=== PATIENT | male | born 1945 | race African-American/Black ===

== ENCOUNTER → 2017-04-24 | Outpatient (CLI) | payer MEDICAID, MEDICARE, OTHER ==
--- NOTE | 2017-04-24 12:49 | RADIOLOGY REPORT (SQ) ---
EXAM DESCRIPTION: U/S RETROPERITON (RENAL/AORTA) COMPLETED DATE/TIME: 04/24/2017 12:03 pm REASON FOR STUDY: CKD III (N18.3) N18.3 CHRONIC KIDNEY DISEASE, STAGE 3 (MODERATE) COMPARISON: None. TECHNIQUE: Dynamic and static grayscale images acquired of the kidneys and bladder and recorded on P ACS. Additional selected color Doppler and spectral images recorded. LIMITATIONS: None. FINDINGS: RIGHT KIDNEY: Normal size, 10.8 cm. Normal echogenicity. No solid or suspicious masses. S everal cysts are present. The largest measured 20 mm. No hydronephrosis. No calcifications. LEFT KIDNEY: Normal size, 10.1 cm. Kidney was not able to be well seen. BLADDER: Bladder was morphologically normal. Bilateral ureteral jets were seen. OTHER FINDINGS: The prostate gland was prominent measuring 4.8 x 4 x 5.2 cm. IMPRESSION: There are several right renal cysts. The right kidney is otherwise normal. The left ki dney is normal in size but was not well seen. The prostate gland is prominent. TECHNICAL DOCUMENTATION: JOB ID: [id number]- All Rights Reserved
== END ==
LOC: RAD 11:04
PROVIDERS: ATTEND Internal Medicine Geriatric Medicine
DX: N18.3 Chronic kidney disease, stage 3 (moderate) (principal)
CPT/HCPCS: 76770

== ENCOUNTER → 2017-04-24 | Outpatient (CLI) | payer MEDICARE ==
[2017-04-24 10:29] LABS: URINE PROTEIN 13.3 mg/dL (<12)
[2017-04-24 10:47] LABS: CREATININE 1.43 mg/dL (0.52-1.25)
== END ==
LOC: OD 08:55
PROVIDERS: ATTEND Internal Medicine Geriatric Medicine
DX: N18.3 Chronic kidney disease, stage 3 (moderate) (principal)
CPT/HCPCS: 82575; 84156

== ENCOUNTER 2018-09-15 17:16 | Outpatient (CLI) | payer MEDICARE ==
[~2018-09-15 17:16] MED LIST: ACETAMINOPHEN 325 MG TABLET PO PRN; DIPHENHYDRAMINE HCL 25 MG CAPSULE PO PRN; FUROSEMIDE INJ/PF 20 MG/2 ML SDV IV PRN
[2018-09-15] MEDS ORDERED: NORMAL SALINE 1000 ML 1,000 ML IV PRN (18:00)
[2018-09-15 19:02] LABS: ABSOLUTE LYMPHOCYTES (AUTO) 0.9 10^3/uL (0.5-4.7); ABSOLUTE MONOCYTES (AUTO) 0.6 10^3/uL (0.1-1.4); ABSOLUTE NEUT (AUTO) 1.9 10^3/uL (1.7-8.2); BASOPHILS % (AUTO) 0.5 % (0-2); EOSINOPHILS % (AUTO) 0.2 % (0-6); HEMATOCRIT 20.6 % (37.9-51.0); LYMPHOCYTES % (AUTO) 26.5 % (13-45); MEAN CORPUSCULAR HEMOGLOBIN 23.8 pg (27.0-33.4); MEAN CORPUSCULAR VOLUME 79 fl (80-97); MONOCYTES % (AUTO) 17.5 % (3-13); PLATELET COUNT 218 10^3/uL (150-450); RED CELL DISTRIBUTION WIDTH 24.3 % (11.5-14.0); SEGMENTED NEUTROPHILS % (AUTO) 55.3 % (42-78); TOTAL CELLS COUNTED % (AUTO) 100 %; WHITE BLOOD COUNT 3.4 10^3/uL (4.0-10.5)
[2018-09-15 19:08] LABS: HEMOGLOBIN 6.2 g/dL (13.5-17.0)
[2018-09-15 19:24] LABS: ANISOCYTOSIS 3+; HYPOCHROMASIA SLIGHT; PLATELET COMMENT ADEQUATE; POIKILOCYTOSIS 1+; TOXIC GRANULATION SLIGHT
[2018-09-15] MEDS ORDERED: SACUBITRIL/VALSARTAN 24 MG/26 MG TABLET PO ONE (22:45)
[2018-09-15] MEDS ORDERED: CARVEDILOL 12.5 MG TABLET PO ONE (23:00)
[2018-09-16] MEDS ORDERED: FUROSEMIDE INJ/PF 20 MG/2 ML SDV IV PRN (05:00)
[2018-09-16 06:40] LABS: HEMATOCRIT 26.2 % (37.9-51.0); HEMOGLOBIN 8.2 g/dL (13.5-17.0); MEAN CORPUSCULAR HEMOGLOBIN 24.9 pg (27.0-33.4); MEAN CORPUSCULAR HGB CONC 31.2 g/dL (32.0-36.0); MEAN CORPUSCULAR VOLUME 80 fl (80-97); PLATELET COUNT 210 10^3/uL (150-450); RED BLOOD COUNT 3.28 10^6/uL (4.35-5.55); RED CELL DISTRIBUTION WIDTH 21.9 % (11.5-14.0); WHITE BLOOD COUNT 3.4 10^3/uL (4.0-10.5)
[2018-09-16] MEDS ORDERED: CARVEDILOL 12.5 MG TABLET PO SCH ×2 (10:00→22:00)
[2018-09-16] MEDS ORDERED: SACUBITRIL/VALSARTAN 24 MG/26 MG TABLET PO SCH (10:00)
[2018-09-16] MEDS ORDERED: IPRATROPIUM/ALBUTEROL 0.5-2.5 MG/3 ML AMPUL NEB PRN (10:23)
[2018-09-16] MEDS ORDERED: ALBUTEROL SULFATE HFA (90 MCG/PUFF) 200 PUFF/8.5 GM MDI IH PRN (10:30)
[2018-09-16] MEDS ORDERED: ACETAMINOPHEN 325 MG TABLET PO PRN (10:30)
[2018-09-16] MEDS ORDERED: DEXTROSE 40% GEL 15 GM TUBE X 2 PO PRN (11:00)
[2018-09-16] MEDS ORDERED: DEXTROSE 50%-WATER SYRINGE 12.5 GM/25 ML DOSE IV PRN (11:00)
[2018-09-16] MEDS ORDERED: GLUCAGON,HUMAN RECOMB 1 MG INJ IM PRN (11:00)
[2018-09-16] MEDS ORDERED: DEXTROSE 50%-WATER SYRINGE 25 GM/50 ML DOSE IV PRN (11:00)
[2018-09-16] MEDS ORDERED: INSULIN REG, HUMAN 100 UNIT/ML 3 ML VIAL (PYX) SUBCUT SCH (11:00)
[2018-09-16] MEDS ORDERED: DEXTROSE 40% GEL 15 GM TUBE PO PRN (11:00)
[2018-09-16] MEDS ORDERED: FLUTICASONE/VILANTEROL 200-25 MCG/DOSE IH SCH (11:30)
[2018-09-16] MEDS ORDERED: ASCORBIC ACID 500 MG TABLET PO SCH (11:30)
[2018-09-16] MEDS ORDERED: POLYETHYLENE GLYCOL 3350 POWDER 17 GM/1 PACKET PO SCH (11:30)
[2018-09-16] MEDS ORDERED: PANTOPRAZOLE SODIUM 20 MG TABLET.DR PO SCH (11:30)
[2018-09-16] MEDS ORDERED: ASPIRIN 81 MG TABLET, ENT COATED PO SCH (11:30)
[2018-09-16] MEDS ORDERED: FERROUS SULFATE 325 MG TABLET PO SCH (11:30)
[2018-09-16] MEDS ORDERED: MULTIVITAMIN TABLET PO SCH (11:30)
[2018-09-16] MEDS ORDERED: FUROSEMIDE 40 MG TABLET PO SCH (11:30)
[2018-09-16] MEDS ORDERED: RANOLAZINE 500 MG TAB.SR.12H PO SCH (11:30)
[2018-09-16] MEDS ORDERED: CARVEDILOL 12.5 MG TABLET PO ONE (12:00)
[2018-09-16] MEDS ORDERED: [UNRECOGNIZED DRUG - OTHER] PO SCH (14:00)
[2018-09-16 17:00] VITALS: BP 164/68
[2018-09-16] MEDS ORDERED: (PENDING PHARMACY ID) (Azelastine Hcl [Azelastine Hcl] 2 SPRAY) NS SCH (18:00)
[2018-09-16 18:15] LABS: ABSOLUTE LYMPHOCYTES (AUTO) 1.1 10^3/uL (0.5-4.7); ABSOLUTE MONOCYTES (AUTO) 0.7 10^3/uL (0.1-1.4); ABSOLUTE NEUT (AUTO) 2.5 10^3/uL (1.7-8.2); BASOPHILS % (AUTO) 0.5 % (0-2); EOSINOPHILS % (AUTO) 0.5 % (0-6); HEMATOCRIT 33.2 % (37.9-51.0); MEAN CORPUSCULAR HEMOGLOBIN 25.8 pg (27.0-33.4); MEAN CORPUSCULAR HGB CONC 31.4 g/dL (32.0-36.0); MEAN CORPUSCULAR VOLUME 82 fl (80-97); MONOCYTES % (AUTO) 15.5 % (3-13); PLATELET COUNT 221 10^3/uL (150-450); RED BLOOD COUNT 4.03 10^6/uL (4.35-5.55); RED CELL DISTRIBUTION WIDTH 20.1 % (11.5-14.0); SEGMENTED NEUTROPHILS % (AUTO) 58.5 % (42-78); TOTAL CELLS COUNTED % (AUTO) 100 %; WHITE BLOOD COUNT 4.2 10^3/uL (4.0-10.5)
[2018-09-16 18:16] LABS: HEMOGLOBIN 10.4 g/dL (13.5-17.0)
[2018-09-16 18:27] LABS: ANISOCYTOSIS 2+; PLATELET COMMENT ADEQUATE
[2018-09-16 18:38] LABS: OVALOCYTES 1+; PLATELET LARGE PRESENT; POIKILOCYTOSIS 1+; POLYCHROMASIA SLIGHT; TEAR DROP CELLS SLIGHT
[2018-09-16] MEDS ORDERED: (PENDING PHARMACY ID) (Fluticasone/Salmeterol 1 PUFF) IH SCH (22:00)
[2018-09-16] MEDS ORDERED: ATORVASTATIN CALCIUM 80 MG TABLET PO SCH (22:00)
[2018-09-16] MEDS ORDERED: GABAPENTIN 100 MG CAPSULE PO SCH (22:00)
[2018-09-17] MEDS ORDERED: (PENDING PHARMACY ID) (Mirabegron [Myrbetriq] 25 MG) PO SCH (10:00)
[2018-09-17] MEDS ORDERED: (PENDING PHARMACY ID) (Rosuvastatin Calcium [Crestor] 40 MG) PO SCH (10:00)
[2018-09-17] MEDS ORDERED: (PENDING PHARMACY ID) (Multivit-Min/Fa/Lycopen/Lutein [Centrum Silver Men Tablet] 1 EACH) PO SCH (10:00)
[2018-09-17] MEDS ORDERED: TAMSULOSIN HCL 0.4 MG CAP.SR.24H PO SCH (11:30)
== END 2018-09-16 19:15 | disposition home or self-care (01) ==
LOC: II 17:16 → 2N 17:33 → II 09-16 19:15
PROVIDERS: ATTEND Internal Medicine Geriatric Medicine
PROC: 30233N1 Transfusion of Nonautologous Red Blood Cells into Peripheral Vein, Percutaneous Approach (ICD-10-PCS; principal; 2018-09-15)
PROC: 30233N1 Transfusion of Nonautologous Red Blood Cells into Peripheral Vein, Percutaneous Approach (ICD-10-PCS; 2018-09-16)
PROC: 3E033GC Introduction of Other Therapeutic Substance into Peripheral Vein, Percutaneous Approach (ICD-10-PCS; 2018-09-16)
DX: D62 Acute posthemorrhagic anemia (principal); I12.9 Hypertensive chronic kidney disease with stage 1 through stage 4 chronic kidney disease, or unspecified chronic kidney disease; E11.22 Type 2 diabetes mellitus with diabetic chronic kidney disease; N18.3 Chronic kidney disease, stage 3 (moderate); Z79.899 Other long term (current) drug therapy; Z79.4 Long term (current) use of insulin
CPT/HCPCS: 86900; 86901; 36415; 36430; 86850; 82962; 85025; 85027; 80053; 86920; 96374; P9016; A9270 ×9; J3490 ×5; J1940; 96375; J1815

== ENCOUNTER 2018-12-18 11:39 | Emergency (ER) | payer MEDICARE ==
[2018-12-18] MEDS ORDERED: FUROSEMIDE INJ/PF 40 MG/4 ML SDV IV ONE (12:42)
[2018-12-18 13:19] LABS: ABSOLUTE LYMPHOCYTES (AUTO) 0.7 10^3/uL (0.5-4.7); ABSOLUTE MONOCYTES (AUTO) 0.3 10^3/uL (0.1-1.4); ABSOLUTE NEUT (AUTO) 1.7 10^3/uL (1.7-8.2); BASOPHILS % (AUTO) 0.7 % (0-2); EOSINOPHILS % (AUTO) 1.5 % (0-6); HEMATOCRIT 30.2 % (37.9-51.0); HEMOGLOBIN 8.9 g/dL (13.5-17.0); LYMPHOCYTES % (AUTO) 25.3 % (13-45); MEAN CORPUSCULAR HEMOGLOBIN 24.6 pg (27.0-33.4); MEAN CORPUSCULAR HGB CONC 29.6 g/dL (32.0-36.0); MEAN CORPUSCULAR VOLUME 83 fl (80-97); MONOCYTES % (AUTO) 10.6 % (3-13); PLATELET COUNT 125 10^3/uL (150-450); RED BLOOD COUNT 3.63 10^6/uL (4.35-5.55); RED CELL DISTRIBUTION WIDTH 22.1 % (11.5-14.0); SEGMENTED NEUTROPHILS % (AUTO) 61.9 % (42-78); TOTAL CELLS COUNTED % (AUTO) 100 %; WHITE BLOOD COUNT 2.7 10^3/uL (4.0-10.5)
[2018-12-18 13:25] LABS: APPEARANCE,URINE CLEAR; BILIRUBIN,URINE NEGATIVE (NEGATIVE); COLOR,URINE STRAW; GLUCOSE, URINE NEGATIVE (NEGATIVE); KETONES,URINE NEGATIVE (NEGATIVE); LEUKOCYTE ESTERASE,URINE NEGATIVE (NEGATIVE); NITRITE,URINE NEGATIVE (NEGATIVE); PROTEIN,URINE NEGATIVE (NEGATIVE); URINE SPECIFIC GRAVITY 1.006; UROBILINOGEN,URINE NEGATIVE mg/dL (<2.0)
[2018-12-18 13:35] LABS: ALANINE AMINOTRANSFERASE 26 U/L (21-72); ALBUMIN 3.6 g/dL (3.5-5.0); ALKALINE PHOSPHATASE 98 U/L (38-126); ANION GAP 8 (5-19); ASPARTATE AMINO TRANSFERASE 32 U/L (17-59); BILIRUBIN,DIRECT 0.4 mg/dL (0.0-0.4); BILIRUBIN,TOTAL 1.1 mg/dL (0.2-1.3); BLOOD UREA NITROGEN 22 mg/dL (7-20); CALCIUM 9.5 mg/dL (8.4-10.2); CARBON DIOXIDE 29 mmol/L (22-30); CHLORIDE 106 mmol/L (98-107); GLUCOSE 124 mg/dL (75-110); SODIUM 142.5 mmol/L (137-145); TOTAL PROTEIN 6.6 g/dL (6.3-8.2)
[2018-12-18 13:49] LABS: POTASSIUM 4.7 mmol/L (3.6-5.0)
[2018-12-18 15:51] VITALS: BP 151/71
--- NOTE | 2018-12-18 19:13 | ER Document Report ---
Entered by RIOS LYNNE SCRIBE 12/18/18 [id number] Acting as scribe for:TENA CHO DO ED GI/ - General Stated Complaint: URINARY PROBLEM Time Seen by Provider: 12/18/18 12:12 Primary Care Provider: LOUIS JEFFERS MD [Primary Care Provider] - Follow up as needed Mode of Arrival: Ambulatory Information source: Patient Notes: 73-year-old male who presents to the emergency department today with complaints of an inability to void. Patient states he has been having increasing difficulty with urination over the last 3 days and was able to only minimally get a small amount of urine out today but "it was a long process". According to telephonic case manager at bedside she noticed some hematuria today as well. Patient mentions that his "legs are tight". Patient denies any dysuria, shortness of breath, or fevers. TRAVEL OUTSIDE OF THE [place] IN LAST 30 DAYS: No - Related Data Allergies/Adverse Reactions: No Known Allergies Allergy (Verified 09/29/18 13:32) Past Medical History - General Information source: Patient, [facility] Records - Social History Smoking Status: Current Some Day Smoker Cigarette use (# per day): Yes Chew tobacco use (# tins/day): No Frequency of alcohol use: None Drug Abuse: None Lives with: Family Family History: Reviewed & Not Pertinent - Past Medical History Cardiac Medical History: Reports: Hx Congestive Heart Failure, Hx Coronary Artery Disease, Hx Heart Attack, Hx Hypercholesterolemia, Hx Hypertension Pulmonary Medical History: Reports: Hx COPD Endocrine Medical History: Reports: Hx Diabetes Mellitus Type 2 Renal/ Medical History: Reports: Hx Benign Prostatic Hyperplasia Psychiatric Medical History: Reports: Hx Depression Past Surgical History: Reports: Hx Cardiac Catheterization, Hx Cardiac Surgery - Immunizations Hx Pneumococcal Vaccination: 04/10/18 Review of Systems - Review of Systems Constitutional: No symptoms reported EENT: No symptoms reported Cardiovascular: No symptoms reported Respiratory: No symptoms reported Gastrointestinal: No symptoms reported Genitourinary: See HPI, Pain, Retention Male Genitourinary: No symptoms reported Musculoskeletal: See HPI, Leg swelling Skin: No symptoms reported Hematologic/Lymphatic: No symptoms reported Neurological/Psychological: No symptoms reported -: Yes All other systems reviewed and negative Physical Exam - Vital signs Vitals: Temp Pulse Resp BP Pulse Ox 97.5 F 79 16 153/64 H 89 L 12/18/18 11:45 12/18/18 11:45 12/18/18 11:45 12/18/18 11:45 12/18/18 11:45 - Notes Notes: PHYSICAL EXAM GENERAL: Alert, interacts well. Appears uncomfortable. HEAD: Normocephalic, atraumatic. EYES: Pupils equal, round, and reactive to light. Extraocular movements intact. ENT: Oral mucosa moist, tongue midline. NECK: Full range of motion. Supple. Trachea midline. LUNGS: Clear to auscultation bilaterally, no wheezes, rales, or rhonchi. No respiratory distress. HEART: Regular rate and rhythm. No murmurs, gallops, or rubs. ABDOMEN: Soft, non-tender. Non-distended. Bowel sounds present in all 4 quadrants. No guarding, rigidity, or rebound. MALE GENITOURINARY: Grossly edematous scrotum and penis, difficulty finding urethra consistent with congestive heart failure related swelling. EXTREMITIES: Moves all 4 extremities spontaneously. 2-3+ pitting edema that trails off at about the level of the scrotum. NEUROLOGICAL: Alert and oriented x3. Normal speech. PSYCH: Normal affect, normal mood. SKIN: Warm and dry. Course - Re-evaluation Re-evalutation: 12/18/18 15:05 CBC shows pancytopenia with a white blood cell count 2.7, anemia with hemoglobin 8.9, platelets low at 125, small amount acute on chronic renal failure with BUN of 22 and creatinine 1.48, this may be due to urinary retention, none of these numbers are usually significantly changed from prior with the exception of the creatinine which is normally normal and today it is 1.48, urinalysis unremarkable, so no signs of dehydration, no casts. There was a great deal of difficulty placing the Diaz catheter, nursing enlisted my assistance in placing the Diaz catheter. Using a pediatric speculum and firm constant pressure I was personally able to eventually visualize the urethra despite large amount of scrotal and penile swelling related to peripheral edema and pass a Diaz catheter. A large amount of urine was obtained, it was clear with no signs of infection and no blood. Diaz catheter will be left in place, leg bag has been placed, patient instructed on use, patient has known prostatic hypertrophy, encouraged to follow-up with primary care physician within the next week for further advice on when to remove the catheter and follow-up with the urologist. Patient is agreeable to this plan. Patient does have increasing peripheral edema however no increasing shortness of breath and no hypoxia when on his basal rate of oxygen. Patient was given an additional dose of Lasix here and encouraged to follow-up as an outpatient with his primary care physician and weigh himself every day. - Vital Signs Vital signs: Temp Pulse Resp BP Pulse Ox 97.5 F 79 15 151/71 H 92 12/18/18 11:45 12/18/18 11:45 12/18/18 15:25 12/18/18 15:25 12/18/18 15:25 - Laboratory Result Diagrams: 12/18/18 13:00 12/18/18 13:00 Laboratory results interpreted by me: 12/18/18 12/18/18 13:00 13:00 WBC 2.7 L RBC 3.63 L Hgb 8.9 L Hct 30.2 L MCH 24.6 L MCHC 29.6 L RDW 22.1 H Plt Count 125 L BUN 22 H Creatinine 1.48 H Est GFR ( Amer) 56 L Est GFR (Non-Af Amer) 47 L Glucose 124 H Discharge - Discharge Clinical Impression: Acute urinary retention Chronic congestive heart failure Qualifiers: Heart failure type: diastolic Qualified Code(s): I50.32 - Chronic diastolic (congestive) heart failure Acute renal failure Qualifiers: Acute renal failure type: unspecified Qualified Code(s): N17.9 - Acute kidney failure, unspecified Condition: Stable Disposition: HOME, SELF-CARE Additional Instructions: Today we had to place a Diaz catheter so that you are able to urinate. Please leave this in place until you have followed up with urology or Dr. Jeffers. Do not remove the catheter on your own. It likely should stay in for at least a week while you continue to take your Flomax. You do have some signs that you are retaining an increasing amount of fluid. We gave you an additional dose of Lasix here. Please keep taking your Lasix/furosemide as directed. Do not skip any doses. Weigh yourself every morning at the same time and if you gain more than 2 pounds overnight please to call Dr. Jeffers for further guidance. If you develop chest pain or shortness of breath or increasing swelling please return to the emergency department. You do have a small amount of damage to your kidneys today, your creatinine is 1.48. This is only slightly higher than usual however it would be a good idea for Dr. Jeffers to recheck this within the next month. Referrals: LOUIS JEFFERS MD [Primary Care Provider] - Follow up as needed I personally performed the services described in the documentation, reviewed and edited the documentation which was dictated to the scribe in my presence, and it accurately records my words and actions.
== END 2018-12-18 15:51 | disposition home or self-care (01) ==
LOC: ER 11:39
DX: R33.9 Retention of urine, unspecified (principal); I11.0 Hypertensive heart disease with heart failure; I50.32 Chronic diastolic (congestive) heart failure; N17.9 Acute kidney failure, unspecified; R39.198 Other difficulties with micturition; R31.9 Hematuria, unspecified; F17.210 Nicotine dependence, cigarettes, uncomplicated; I25.10 Atherosclerotic heart disease of native coronary artery without angina pectoris; I25.2 Old myocardial infarction; J44.9 Chronic obstructive pulmonary disease, unspecified; E11.9 Type 2 diabetes mellitus without complications
CPT/HCPCS: 99283; 51702; 96374; 36415; 85025; 80053; 81001; C1758; J1940

== ENCOUNTER 2018-12-20 09:43 | Inpatient (IN) | payer MEDICARE ==
--- NOTE | 2018-12-20 10:15 | ER Document Report ---
ED General - General Chief Complaint: Edema Stated Complaint: ENLARGED TESTICLES Time Seen by Provider: 12/20/18 10:13 Notes: Patient is a 73-year-old male with CHF, CAD that presents to the emergency department for chief complaint of scrotal and penile swelling. Patient was seen in the emergency department on a few days ago, for the same complaint, he had a Diaz catheter placed at that time. He states that the swelling and pain is still uncomfortable today so he decided come back to the emergency department. Patient reports he is had swelling in his testicles for almost a week now, was seen in the emergency department on , was given Lasix at that time, had a slight elevation in his creatinine, he is currently taking p.o. Lasix once a day at least that he believes. He is not sure of the dosing. He states that things are much improved, he has aching pain in the testicles themselves, currently rates it as a 3 out of 10, and is constant in nature. He has not followed up with anybody, did not make a call to follow-up with urology as recommended on his prior visit. He was thinking that this would get better but it stayed about the same. He also noticed a few flecks of blood in the urine, but has not noticed ten hematuria. Past Medical History: CHF, hypertension, CAD, diabetes Past Surgical History: PCI with stenting Social History: Denies tobacco, alcohol or drug use, lives at home. Family History: Reviewed and noncontributory for presenting illness Allergies: Reviewed, see documented allergy list. REVIEW OF SYSTEMS: Other than noted above, the 12 point review of systems was reviewed with the patient and were negative, all pertinent findings are included in the HPI. PHYSICAL EXAMINATION: Vital signs reviewed, nursing noted reviewed. GENERAL: Elderly male, no acute distress HEAD: Atraumatic, normocephalic. EYES: Eyes appear normal, extraocular movements intact, sclera anicteric, conjunctiva are normal. ENT: nares patent, oropharynx clear without exudates. Moist mucous membranes. NECK: Normal range of motion, supple without lymphadenopathy LUNGS: Breath sounds clear to auscultation bilaterally and equal. No wheezes rales or rhonchi. HEART: Regular rate and rhythm without murmurs ABDOMEN: Soft, nontender, normoactive bowel sounds. No rebound, guarding, or rigidity. No masses appreciated. Male genital exam: Patient noted to have both scrotal and penile edema to moderate degree, Diaz catheter in place, clear yellow urine noted in the leg bag. Mild tenderness to palpation to the scrotum, no erythema noted. EXTREMITIES: Bilateral lower extremity pitting edema, 3+ to the thighs. NEUROLOGICAL: No focal neurological deficits. Moves all extremities spontaneously Motor and sensory grossly intact on exam. PSYCH: Normal mood, normal affect. SKIN: Warm, Dry, normal turgor, no rashes or lesions noted on exposed skin TRAVEL OUTSIDE OF THE [place] IN LAST 30 DAYS: No - Related Data Allergies/Adverse Reactions: No Known Allergies Allergy (Verified 09/29/18 13:32) Past Medical History - Social History Smoking Status: Never Smoker Family History: Reviewed & Not Pertinent - Past Medical History Cardiac Medical History: Reports: Hx Congestive Heart Failure, Hx Coronary A rtery Disease, Hx Heart Attack, Hx Hypercholesterolemia, Hx Hypertension Pulmonary Medical History: Reports: Hx COPD Endocrine Medical History: Reports: Hx Diabetes Mellitus Type 2 Renal/ Medical History: Reports: Hx Benign Prostatic Hyperplasia. Denies: Hx Peritoneal Dialysis Psychiatric Medical History: Reports: Hx Depression Past Surgical History: Reports: Hx Cardiac Catheterization, Hx Cardiac Surgery - Immunizations Hx Pneumococcal Vaccination: 04/10/18 Physical Exam - Vital signs Vitals: Resp Pulse Ox 15 93 12/20/18 09:50 12/20/18 09:50 Course - Re-evaluation Re-evalutation: Patient seen and examined vital signs reviewed. Laboratory data and imaging were ordered as appropriate for the patient's presenting symptoms and complaint, with consideration of any critical or life threatening conditions that may be associated with their obtained history and exam as noted above. Patient was treated with IV Lasix and IV Rocephin Results were reviewed when available and demonstrated worsened renal function, UA was consistent with urinary tract infection as well. The patient was re-evaluated and was stable Evaluation was most consistent with scrotal edema, acute kidney injury, urinary tract infection Results were discussed with the patient at this point after careful consideration I feel that that patient should be admitted to the hospital. This was discussed with the patient that it is in the best interest for their care to be admitted for further evaluation and management. Patient agreed with this plan of care. A call was placed to the admitting physician, Dr. Cardenas who graciously accepted the patient onto their service. *Note is created using voice recognition software and may contain spelling, syntax or grammatical errors. Laboratory 12/20/18 12/20/18 12/20/18 10:07 10:07 10:07 WBC Cancelled RBC Cancelled Hgb Cancelled Hct Cancelled MCV Cancelled MCH Cancelled MCHC Cancelled RDW Cancelled Plt Count Cancelled Seg Neutrophils % Cancelled Lymphocytes % Cancelled Monocytes % Cancelled Eosinophils % Cancelled Basophils % Cancelled Absolute Neutrophils Cancelled Absolute Lymphocytes Cancelled Absolute Monocytes Cancelled Absolute Eosinophils Cancelled Absolute Basophils Cancelled Platelet Estimate Cancelled Sodium 142.5 Potassium 4.1 Chloride 104 Carbon Dioxide 31 H Anion Gap 8 BUN 26 H Creatinine 1.62 H Est GFR ( Amer) 51 L Est GFR (Non-Af Amer) 42 L Glucose 124 H Calcium 9.2 NT-Pro-B Natriuret Pep Urine Color YELLOW Urine Appearance CLOUDY Urine pH 8.0 Ur Specific Stewart 1.022 Urine Protein >=500 H Urine Glucose (UA) NEGATIVE Urine Ketones NEGATIVE Urine Blood MODERATE H Urine Nitrite POSITIVE H Urine Bilirubin SMALL H Urine Urobilinogen 4.0 H Ur Leukocyte Esterase LARGE H Urine WBC (Auto) 92 Urine RBC (Auto) 102 U Hyaline Cast (Auto) 1 Urine Bacteria (Auto) TRACE Triple Phos Cryst (Auto) RARE Urine Mucus (Auto) RARE Urine Creatinine Protein/Creatinin Ratio Urine Total Protein Urine Ascorbic Acid NEGATIVE Slides for Path Review Cancelled 12/20/18 12/20/18 12/20/18 10:07 10:07 11:17 WBC 3.3 L RBC 3.47 L Hgb 8.6 L Hct 28.5 L MCV 82 MCH 24.8 L MCHC 30.1 L RDW 21.6 H Plt Count 113 L Seg Neutrophils % 64.8 Lymphocytes % 21.1 Monocytes % 12.6 Eosinophils % 0.8 Basophils % 0.7 Absolute Neutrophils 2.1 Absolute Lymphocytes 0.7 Absolute Monocytes 0.4 Absolute Eosinophils 0.0 Absolute Basophils 0.0 Platelet Estimate Sodium Potassium Chloride Carbon Dioxide Anion Gap BUN Creatinine Est GFR ( Amer) Est GFR (Non-Af Amer) Glucose Calcium NT-Pro-B Natriuret Pep 9510 H Urine Color Urine Appearance Urine pH Ur Specific Stewart Urine Protein Urine Glucose (UA) Urine Ketones Urine Blood Urine Nitrite Urine Bilirubin Urine Urobilinogen Ur Leukocyte Esterase Urine WBC (Auto) Urine RBC (Auto) U Hyaline Cast (Auto) Urine Bacteria (Auto) Triple Phos Cryst (Auto) Urine Mucus (Auto) Urine Creatinine 144.1 Protein/Creatinin Ratio 0.9 H Urine Total Protein 123.8 H Urine Ascorbic Acid Slides for Path Review Chest X-Ray 12/20/18 00:00 IMPRESSION: 1. Stable cardiomegaly. 2. Persistent blunting of both costophrenic angles most likely representing pleural thickening. Small pleural effusions cannot be excluded but again are unchanged from prior study. - Vital Signs Vital signs: Temp Pulse Resp BP Pulse Ox 97.8 F 12 160/76 H 95 12/20/18 10:10 12/20/18 14:31 12/20/18 14:31 12/20/18 14:31 - Laboratory Result Diagrams: 12/20/18 11:17 12/20/18 10:07 Laboratory results interpreted by me: 12/20/18 12/20/18 12/20/18 10:07 10:07 10:07 WBC RBC Hgb Hct MCH MCHC RDW Plt Count Carbon Dioxide 31 H BUN 26 H Creatinine 1.62 H Est GFR ( Amer) 51 L Est GFR (Non-Af Amer) 42 L Glucose 124 H NT-Pro-B Natriuret Pep 9510 H Urine Protein >=500 H Urine Blood MODERATE H Urine Nitrite POSITIVE H Urine Bilirubin SMALL H Urine Urobilinogen 4.0 H Ur Leukocyte Esterase LARGE H Protein/Creatinin Ratio Urine Total Protein 12/20/18 12/20/18 10:07 11:17 WBC 3.3 L RBC 3.47 L Hgb 8.6 L Hct 28.5 L MCH 24.8 L MCHC 30.1 L RDW 21.6 H Plt Count 113 L Carbon Dioxide BUN Creatinine Est GFR ( Amer) Est GFR (Non-Af Amer) Glucose NT-Pro-B Natriuret Pep Urine Protein Urine Blood Urine Nitrite Urine Bilirubin Urine Urobilinogen Ur Leukocyte Esterase Protein/Creatinin Ratio 0.9 H Urine Total Protein 123.8 H Discharge - Discharge Clinical Impression: Scrotal edema, Anasarca, BERNIE (acute kidney injury) UTI (urinary tract infection) Qualifiers: Urinary tract infection type: site unspecified Hematuria presence: with hematuria Qualified Code(s): N39.0 - Urinary tract infection, site not specified Condition: Stable Disposition: ADMITTED INPATIENT Admitting Provider: Ronald Unit Admitted: [facility]
[2018-12-20] MEDS ORDERED: HYDROCODONE/ACETAMINOPHEN 5-325 MG TABLET PO ONE (10:28)
[2018-12-20 10:41] LABS: APPEARANCE,URINE CLOUDY; BILIRUBIN,URINE SMALL (NEGATIVE); COLOR,URINE YELLOW; GLUCOSE, URINE NEGATIVE (NEGATIVE); KETONES,URINE NEGATIVE (NEGATIVE); LEUKOCYTE ESTERASE,URINE LARGE (NEGATIVE); NITRITE,URINE POSITIVE (NEGATIVE); PROTEIN,URINE >=500 mg/dL (NEGATIVE); TRIPLE PHOSPHATE CRYSTAL,URINE RARE /HPF; URINE SPECIFIC GRAVITY 1.022
[2018-12-20 10:43] LABS: ANION GAP 8 (5-19); BLOOD UREA NITROGEN 26 mg/dL (7-20); CALCIUM 9.2 mg/dL (8.4-10.2); CARBON DIOXIDE 31 mmol/L (22-30); CHLORIDE 104 mmol/L (98-107); GLUCOSE 124 mg/dL (75-110); POTASSIUM 4.1 mmol/L (3.6-5.0); SODIUM 142.5 mmol/L (137-145)
[2018-12-20 11:33] LABS: ABSOLUTE LYMPHOCYTES (AUTO) 0.7 10^3/uL (0.5-4.7); ABSOLUTE MONOCYTES (AUTO) 0.4 10^3/uL (0.1-1.4); ABSOLUTE NEUT (AUTO) 2.1 10^3/uL (1.7-8.2); BASOPHILS % (AUTO) 0.7 % (0-2); EOSINOPHILS % (AUTO) 0.8 % (0-6); HEMATOCRIT 28.5 % (37.9-51.0); HEMOGLOBIN 8.6 g/dL (13.5-17.0); LYMPHOCYTES % (AUTO) 21.1 % (13-45); MEAN CORPUSCULAR HEMOGLOBIN 24.8 pg (27.0-33.4); MEAN CORPUSCULAR HGB CONC 30.1 g/dL (32.0-36.0); MEAN CORPUSCULAR VOLUME 82 fl (80-97); MONOCYTES % (AUTO) 12.6 % (3-13); PLATELET COUNT 113 10^3/uL (150-450); RED BLOOD COUNT 3.47 10^6/uL (4.35-5.55); RED CELL DISTRIBUTION WIDTH 21.6 % (11.5-14.0); SEGMENTED NEUTROPHILS % (AUTO) 64.8 % (42-78); TOTAL CELLS COUNTED % (AUTO) 100 %; WHITE BLOOD COUNT 3.3 10^3/uL (4.0-10.5)
[2018-12-20] MEDS ORDERED: CEFTRIAXONE 1 GM/D5W RTU 1 GM/50 ML RTUPB IV ONE (11:56)
[2018-12-20] MEDS ORDERED: FUROSEMIDE INJ/PF 40 MG/4 ML SDV IV ONE (11:57)
[2018-12-20] MEDS ORDERED: NORMAL SALINE 250 ML with FUROSEMIDE 250 MG IV PRN ×2 (15:19)
[2018-12-20] MEDS ORDERED: DEXTROSE 40% GEL 15 GM TUBE PO PRN ×2 (15:29)
[2018-12-20] MEDS ORDERED: DEXTROSE 50%-WATER 25 GM/50 ML DISP.SYRIN IV PRN ×2 (15:29)
[2018-12-20] MEDS ORDERED: GLUCAGON,HUMAN RECOMB 1 MG INJ IM PRN (15:29)
[2018-12-20] MEDS ORDERED: (PENDING PHARMACY ID) (Rosuvastatin Calcium [Crestor] 40 MG) PO SCH (15:30)
[2018-12-20] MEDS ORDERED: (PENDING PHARMACY ID) (Mirabegron [Myrbetriq] 25 MG) PO SCH (15:30)
[2018-12-20] MEDS ORDERED: (PENDING PHARMACY ID) (Ferrous Sulfate [Ferrous Sulfate] 325 MG) PO SCH (15:30)
--- NOTE | 2018-12-20 15:46 | PDOC H&P ---
History of Present Illness Admission Date/PCP: 12/20/18 12:05 [facility] History of Present Illness: HARPREET CRUZ JR is a 73 year old male, he has a history of ischemic cardiomyopathy, he came to the emergency room on 12/18/2018 for evaluation of difficulty urinating for 3 days, based on the record from the emergency room which I reviewed he was Diaz catheterized with difficulty he had at the time tremendous scrotal edema and pedal edema, patient is known to have biventricular heart failure. He had a 2D echo done in this hospital on the echo showed severe concentric LVH, EF 40% there was moderate global hypokinesis of left ventricle also found was moderate right ventricular hypertrophy, the right atrium was dilated the left atrium was dilated there was pulmonary hypertension, severe. When I saw this patient today on the floor he has anasarca with tremendous edema affecting both lower extremities. He came to the emergency room today for evaluation of the same symptoms scrotal swelling with groin swelling the last time he was seen in the ER he was discharged home on Diaz catheter, he was advised to follow with Dr. Jeffers outpatient and also urolog y. I reviewed his medication patient is already on tamsulosin. Patient seems to be in acute CHF, he has shortness of breath on exertion but has no chest pain Past Medical History Cardiac Medical History: Reports: Congestive Heart Failure, Coronary Artery Di sease, Myocardial Infarction, Hyperlipidema, Hypertension Pulmonary Medical History: Reports: Chronic Obstructive Pulmonary Disease (COPD) Endocrine Medical History: Reports: Diabetes Mellitus Type 2 Renal/ Medical History: Reports: Chronic Kidney Disease Psychiatric Medical History: Reports: Depression Past Surgical History Past Surgical History: Reports: Cardiac Catheterization Social History Smoking Status: Never Smoker Frequency of Alcohol Use: None Hx Recreational Drug Use: No Drugs: None Hx Prescription Drug Abuse: No Family History Family History: Reviewed & Not Pertinent Parental Family History Reviewed: Yes Children Family History Reviewed: Yes Sibling(s) Family History Reviewed.: Yes Medication/Allergy Home Medications: Albuterol Sulfate [Proair HFA Inhalation Aerosol 8.5 gm MDI] 2 puff IH Q4HP PRN 09/29/18 Furosemide [Lasix 40 mg Tablet] 60 mg PO QAM 09/29/18 Omeprazole 20 mg PO DAILY 09/29/18 Ranolazine [Ranexa] 1,000 mg PO BID 09/29/18 Rosuvastatin Calcium [Crestor] 40 mg PO DAILY 09/29/18 Ascorbic Acid 500 mg PO DAILY #30 tablet 10/07/18 Carvedilol 25 mg PO BID #60 tablet 10/07/18 Ferrous Sulfate 325 mg PO DAILY #30 tablet. 10/07/18 Hydralazine HCl [Apresoline 50 mg Tablet] 50 mg PO Q8 #90 tablet 10/07/18 Nateglinide [Starlix 60 Mg Tablet] 60 mg PO AC #90 tablet 10/07/18 Tamsulosin HCl [Flomax] 0.4 mg PO DAILY #30 cap.er.24h 10/07/18 Fluticasone/Umeclidin/Vilanter [Trelegy 100-62.5-25 Mcg Ellipta 14 Dose/Dpi] 1 puff IH DAILY 12/20/18 Insulin Aspart [Novolog Flexpen] 0 unit SUBCUT .SLD SCALE 12/20/18 Mirabegron [Myrbetriq] 25 mg PO DAILY 12/20/18 Sacubitril/Valsartan [Entresto 97 mg/103 mg Tablet] 1 tab PO Q12 12/20/18 Allergies/Adverse Reactions: No Known Allergies Allergy (Verified 09/29/18 13:32) Review of Systems Constitutional: ABSENT: chills, fever(s), headache(s), weight gain, weight loss Eyes: ABSENT: visual disturbances Ears: ABSENT: hearing changes Cardiovascular: PRESENT: edema, orthropnea Respiratory: PRESENT: cough, dyspnea Gastrointestinal: ABSENT: abdominal pain, constipation, diarrhea, hematemesis, hematochezia, nausea, vomiting Genitourinary: PRESENT: difficulty urinating, dysuria. ABSENT: hematuria Musculoskeletal: ABSENT: joint swelling Integumentary: ABSENT: rash, wounds Neurological: ABSENT: abnormal gait, abnormal speech, confusion, dizziness, focal weakness, syncope Psychiatric: ABSENT: anxiety, depression, homidical ideation, suicidal ideation Endocrine: ABSENT: cold intolerance, heat intolerance, menstrual abnormalities, polydipsia, polyuria Hematologic/Lymphatic: ABSENT: easy bleeding, easy bruising, lymphadenopathy Physical Exam Vital Signs: Temp Pulse Resp BP Pulse Ox 97.8 F 12 160/76 H 95 12/20/18 10:10 12/20/18 14:31 12/20/18 14:31 12/20/18 14:31 Intake & Output 12/19/18 12/20/18 12/21/18 06:59 06:59 06:59 Intake Total 50 Balance 50 Weight 117.8 kg General appearance: PRESENT: mild distress Head exam: PRESENT: atraumatic, normocephalic Eye exam: PRESENT: conjunctiva pink, EOMI, PERRLA Ear exam: PRESENT: normal external ear exam Mouth exam: PRESENT: moist, tongue midline Neck exam: PRESENT: full ROM Respiratory exam: PRESENT: clear to auscultation philip Cardiovascular exam: PRESENT: RRR, +S1, +S2, systolic murmur Vascular exam: PRESENT: normal capillary refill GI/Abdominal exam: PRESENT: normal bowel sounds, soft Rectal exam: PRESENT: deferred Extremities exam: PRESENT: pedal edema, other - He has extreme edema extending from the feet to the abdomen Neurological exam: PRESENT: alert, CN II-XII grossly intact. ABSENT: motor sensory deficit Psychiatric exam: PRESENT: appropriate affect, normal mood Skin exam: PRESENT: dry, intact, warm Results Laboratory Results: 12/20/18 11:17 12/20/18 10:07 12/20/18 12/20/18 12/20/18 10:07 10:07 10:07 WBC Cancelled RBC Cancelled Hgb Cancelled Hct Cancelled MCV Cancelled MCH Cancelled MCHC Cancelled RDW Cancelled Plt Count Cancelled Seg Neutrophils % Cancelled Lymphocytes % Cancelled Monocytes % Cancelled Eosinophils % Cancelled Basophils % Cancelled Absolute Neutrophils Cancelled Absolute Lymphocytes Cancelled Absolute Monocytes Cancelled Absolute Eosinophils Cancelled Absolute Basophils Cancelled Sodium 142.5 Potassium 4.1 Chloride 104 Carbon Dioxide 31 H Anion Gap 8 BUN 26 H Creatinine 1.62 H Est GFR ( Amer) 51 L Est GFR (Non-Af Amer) 42 L Glucose 124 H Calcium 9.2 Urine Color YELLOW Urine Appearance CLOUDY Urine pH 8.0 Ur Specific Leigh 1.022 Urine Protein >=500 H Urine Glucose (UA) NEGATIVE Urine Ketones NEGATIVE Urine Blood MODERATE H Urine Nitrite POSITIVE H Ur Leukocyte Esterase LARGE H Urine WBC (Auto) 92 Urine RBC (Auto) 102 12/20/18 11:17 WBC 3.3 L RBC 3.47 L Hgb 8.6 L Hct 28.5 L MCV 82 MCH 24.8 L MCHC 30.1 L RDW 21.6 H Plt Count 113 L Seg Neutrophils % 64.8 Lymphocytes % 21.1 Monocytes % 12.6 Eosinophils % 0.8 Basophils % 0.7 Absolute Neutrophils 2.1 Absolute Lymphocytes 0.7 Absolute Monocytes 0.4 Absolute Eosinophils 0.0 Absolute Basophils 0.0 Sodium Potassium Chloride Carbon Dioxide Anion Gap BUN Creatinine Est GFR ( Amer) Est GFR (Non-Af Amer) Glucose Calcium Urine Color Urine Appearance Urine pH Ur Specific Leigh Urine Protein Urine Glucose (UA) Urine Ketones Urine Blood Urine Nitrite Ur Leukocyte Esterase Urine WBC (Auto) Urine RBC (Auto) Assessment & Plan - Diagnosis (1) Acute systolic heart failure Is this a current diagnosis for this admission?: Yes Plan: Start Lasix drip (2) Severe pulmonary arterial systolic hypertension Is this a current diagnosis for this admission?: Yes (3) Anasarca Is this a current diagnosis for this admission?: Yes (4) CKD stage 3 due to type 2 diabetes mellitus Is this a current diagnosis for this admission?: Yes (5) BPH (benign prostatic hyperplasia) Qualifiers: Lower urinary tract symptom presence: symptoms present Lower urinary tract symptom detail: unspecified Qualified Code(s): N40.1 - Benign prostatic hy perplasia with lower urinary tract symptoms Is this a current diagnosis for this admission?: Yes Plan: start finasteride,continue tamsulosis
[2018-12-20 16:10] LABS: UR PRO/CREAT RATIO RESULT 0.9 mg/mg (0.0-0.2); URINE CREATININE 144.1 mg/dL (22-328); URINE PROTEIN 123.8 mg/dL (<12)
[2018-12-20] MEDS: ASCORBIC ACID 500 MG TABLET PO SCH (16:25)
--- NOTE | 2018-12-20 16:25 | RADIOLOGY REPORT (SQ) ---
EXAM DESCRIPTION: CHEST SINGLE VIEW COMPLETED DATE/TIME: 12/20/2018 4:15 pm REASON FOR STUDY: chf COMPARISON: 09/29/2018 NUMBER OF VIEWS: One view. TECHNIQUE: Single frontal radiographic view of the chest acquired. LIMITATIONS: None. FINDINGS: LUNGS AND PLEURA: There is blunting of both costophrenic angle stable from prior study. T his could represent residual effusions or pleural thickening. No consolidation. MEDIASTINUM AND HILAR STRUCTURES: No masses. Contour normal. HEART AND VASCULAR STRUCTURES: Heart size is stable. No overt failure. BONES: No acute findings. HARDWARE: Sternotomy wires are in place. OTHER: No other significant finding. IMPRESSION: 1. Stable cardiomegaly. 2. Persistent blunting of both costophrenic angles most likely representing pleural thickening. Sma ll pleural effusions cannot be excluded but again are unchanged from prior study. TECHNICAL DOCUMENTATION: JOB ID: [id number] [employer]- All Rights Reserved Reading location - IP/workstation name: [email or web address]
[2018-12-20] MEDS: NATEGLINIDE 60 MG TABLET PO SCH (16:26)
[2018-12-20] MEDS: HYDRALAZINE HCL 50 MG TABLET PO SCH ×2 (16:26→22:02)
[2018-12-20] MEDS: FINASTERIDE 5 MG TABLET PO SCH (16:26)
[2018-12-20] MEDS: HEPARIN SOD (PORCINE) 5,000 UNIT/ML 1 ML SYRINGE SUBCUT SCH ×2 (16:27→22:14)
[2018-12-20] MEDS: TAMSULOSIN HCL 0.4 MG CAP.SR.24H PO SCH (16:27)
[2018-12-20 16:33] LABS: INTERNATIONAL RATION (INR) 1.31; PROTHROMBIN TIME 16.4 SEC (11.4-15.4)
[2018-12-20 16:34] LABS: PARTIAL THROMBOPLASTIN TIME 42.2 SEC (23.5-35.8)
[2018-12-20 16:47] LABS: CREATINE KINASE MB 0.84 ng/mL (<4.55); TROPONIN I 0.03 ng/mL
[2018-12-20 16:49] LABS: ARTERIAL BLOOD H2CO3 1.46 mmol/L (1.05-1.35); ARTERIAL BLOOD HCO3 30.3 mmol/L (20-24); ARTERIAL BLOOD O2 SATURATION 92.5 % (94-98); ARTERIAL BLOOD PCO2 48.4 mmHg (35-45); ARTERIAL BLOOD PH 7.41 (7.35-7.45); ARTERIAL BLOOD PO2 63.9 mmHg (80-100); ARTERIAL BLOOD TOTAL CO2 31.8 mmol/L (23-27)
[2018-12-20 16:50] LABS: ARTERIAL BLOOD FIO2 36%
[2018-12-20 16:51] LABS: FREE T4 (FREE THYROXINE) 1.48 ng/dL (0.78-2.19)
[2018-12-20 17:05] LABS: THYROID STIMULATING HORMONE 2.67 uIU/mL (0.47-4.68)
--- NOTE | 2018-12-20 17:05 | EKG REPORT ---
SEVERITY:- ABNORMAL ECG - SINUS RHYTHM MULTIFORM VENTRICULAR PREMATURE COMPLEXES LEFT BUNDLE BRANCH BLOCK : Confirmed by: Leslie Recinos MD 20-Dec-2018 17:04:24
[2018-12-20] MEDS ORDERED: (PENDING PHARMACY ID) (Carvedilol [Carvedilol] 25 MG) PO SCH (18:00)
[2018-12-20] MEDS ORDERED: (PENDING PHARMACY ID) (Ranolazine [Ranexa] 1,000 MG) PO SCH (18:00)
[2018-12-20] MEDS: INSULIN LISPRO 100 UNIT/ML 3 ML VIAL SUBCUT SCH ×2 (18:01→22:02)
[2018-12-20] MEDS: RANOLAZINE 500 MG TAB.SR.12H PO SCH (18:02)
[2018-12-20] MEDS: PHARMACY COMMUNICATION ORDER MC SCH (18:03)
[2018-12-20] MEDS: CARVEDILOL 12.5 MG TABLET PO SCH (22:01)
[2018-12-20] MEDS: SACUBITRIL/VALSARTAN 97 MG/103 MG TABLET PO SCH (22:02)
[2018-12-20] MEDS: ATORVASTATIN CALCIUM 80 MG TABLET PO SCH (22:02)
[2018-12-20 22:46] LABS: CREATINE KINASE MB 0.89 ng/mL (<4.55); TROPONIN I 0.031 ng/mL
[2018-12-21 04:08] LABS: ABSOLUTE LYMPHOCYTES (AUTO) 0.6 10^3/uL (0.5-4.7); ABSOLUTE MONOCYTES (AUTO) 0.3 10^3/uL (0.1-1.4); ABSOLUTE NEUT (AUTO) 2.1 10^3/uL (1.7-8.2); EOSINOPHILS % (AUTO) 1.5 % (0-6); HEMATOCRIT 29.3 % (37.9-51.0); HEMOGLOBIN 8.8 g/dL (13.5-17.0); LYMPHOCYTES % (AUTO) 20.2 % (13-45); MEAN CORPUSCULAR HEMOGLOBIN 24.4 pg (27.0-33.4); MEAN CORPUSCULAR VOLUME 82 fl (80-97); PLATELET COUNT 123 10^3/uL (150-450); RED CELL DISTRIBUTION WIDTH 21.8 % (11.5-14.0); SEGMENTED NEUTROPHILS % (AUTO) 66.3 % (42-78); TOTAL CELLS COUNTED % (AUTO) 100 %; WHITE BLOOD COUNT 3.1 10^3/uL (4.0-10.5)
[2018-12-21 04:28] LABS: ALANINE AMINOTRANSFERASE 23 U/L (21-72); ALBUMIN 3.1 g/dL (3.5-5.0); ALKALINE PHOSPHATASE 92 U/L (38-126); ASPARTATE AMINO TRANSFERASE 24 U/L (17-59); BILIRUBIN,DIRECT 0.5 mg/dL (0.0-0.4); CHOLESTEROL 66.99 mg/dL (0-200); TRIGLYCERIDES 65 mg/dL (<150)
[2018-12-21 04:40] LABS: CREATINE KINASE MB 0.62 ng/mL (<4.55); DIRECT LDL 38 mg/dL (<100); TROPONIN I 0.035 ng/mL
[2018-12-21] MEDS: HEPARIN SOD (PORCINE) 5,000 UNIT/ML 1 ML SYRINGE SUBCUT SCH ×3 (05:14→22:30)
[2018-12-21] MEDS: HYDRALAZINE HCL 50 MG TABLET PO SCH ×3 (06:42→22:30)
[2018-12-21] MEDS: PANTOPRAZOLE SODIUM 20 MG TABLET.DR PO SCH (06:42)
[2018-12-21 08:25] LABS: ANION GAP 8 (5-19); BLOOD UREA NITROGEN 25 mg/dL (7-20); CARBON DIOXIDE 31 mmol/L (22-30); CHLORIDE 101 mmol/L (98-107); GLUCOSE 108 mg/dL (75-110); POTASSIUM 3.8 mmol/L (3.6-5.0); SODIUM 139.7 mmol/L (137-145)
[2018-12-21] MEDS: INSULIN LISPRO 100 UNIT/ML 3 ML VIAL SUBCUT SCH ×4 (09:09→22:06)
[2018-12-21] MEDS ORDERED: ACETAMINOPHEN 325 MG TABLET PO PRN (09:22)
[2018-12-21] MEDS: RANOLAZINE 500 MG TAB.SR.12H PO SCH ×2 (09:23→17:53)
[2018-12-21] MEDS: CARVEDILOL 12.5 MG TABLET PO SCH ×2 (09:23→22:29)
[2018-12-21] MEDS: SACUBITRIL/VALSARTAN 97 MG/103 MG TABLET PO SCH ×2 (09:23→22:30)
[2018-12-21] MEDS: TAMSULOSIN HCL 0.4 MG CAP.SR.24H PO SCH (09:23)
[2018-12-21] MEDS: FERROUS SULFATE 325 MG TABLET PO SCH (09:24)
[2018-12-21] MEDS: ASCORBIC ACID 500 MG TABLET PO SCH (09:24)
[2018-12-21] MEDS: NATEGLINIDE 60 MG TABLET PO SCH ×3 (09:24→17:53)
[2018-12-21] MEDS: FINASTERIDE 5 MG TABLET PO SCH (09:24)
[2018-12-21] MEDS: FLUTICASONE/UMECLIDIN/VILANTER 100-62.5-25 MCG/DOSE IH SCH (09:33)
[2018-12-21] MEDS ORDERED: CEFTRIAXONE 1 GM/D5W RTU 1 GM/50 ML RTUPB IV SCH (12:30)
--- NOTE | 2018-12-21 15:26 | PDOC PROGRESS REPORT ---
Subjective Progress Note for:: 12/21/18 Subjective:: Patient seen by the bedside, he is diuresing very well, he feels better Reason For Visit: HEART FAILURE Physical Exam Vital Signs: Temp Pulse Resp BP Pulse Ox 97.6 F 68 16 126/56 H 98 12/21/18 04:20 12/21/18 04:20 12/21/18 04:20 12/21/18 10:00 12/21/18 04:20 Intake & Output 12/20/18 12/21/18 12/22/18 06:59 06:59 06:59 Intake Total 491 Output Total 4600 Balance -4109 Weight 116.8 kg General appearance: PRESENT: no acute distress Eye exam: PRESENT: PERRLA Respiratory exam: PRESENT: clear to auscultation philip Cardiovascular exam: PRESENT: +S1, +S2 GI/Abdominal exam: PRESENT: soft Neurological exam: PRESENT: alert Results Laboratory Results: 12/21/18 03:40 12/21/18 03:40 12/20/18 12/20/18 12/20/18 16:00 16:00 16:36 WBC RBC Hgb Hct MCV MCH MCHC RDW Plt Count Seg Neutrophils % Lymphocytes % Monocytes % Eosinophils % Basophils % Absolute Neutrophils Absolute Lymphocytes Absolute Monocytes Absolute Eosinophils Absolute Basophils Carbonic Acid 1.46 H HCO3/H2CO3 Ratio 20:1 ABG pH 7.41 ABG pCO2 48.4 H ABG pO2 63.9 L ABG HCO3 30.3 H ABG O2 Saturation 92.5 L ABG Base Excess 5.0 FiO2 36% Sodium Potassium Chloride Carbon Dioxide Anion Gap BUN Creatinine Est GFR ( Amer) Est GFR (Non-Af Amer) Glucose Calcium Magnesium 2.0 Total Bilirubin AST ALT Alkaline Phosphatase Total Protein Albumin Triglycerides Cholesterol LDL Cholesterol Direct VLDL Cholesterol HDL Cholesterol TSH 2.67 Free T4 1.48 12/21/18 12/21/18 12/21/18 03:40 03:40 03:40 WBC 3.1 L RBC 3.60 L Hgb 8.8 L Hct 29.3 L MCV 82 MCH 24.4 L MCHC 30.0 L RDW 21.8 H Plt Count 123 L Seg Neutrophils % 66.3 Lymphocytes % 20.2 Monocytes % 11.0 Eosinophils % 1.5 Basophils % 1.0 Absolute Neutrophils 2.1 Absolute Lymphocytes 0.6 Absolute Monocytes 0.3 Absolute Eosinophils 0.0 Absolute Basophils 0.0 Carbonic Acid HCO3/H2CO3 Ratio ABG pH ABG pCO2 ABG pO2 ABG HCO3 ABG O2 Saturation ABG Base Excess FiO2 Sodium 139.7 Potassium 3.8 Chloride 101 Carbon Dioxide 31 H Anion Gap 8 BUN 25 H Creatinine 1.54 H Est GFR ( Amer) 54 L Est GFR (Non-Af Amer) 45 L Glucose 108 Calcium 9.0 Magnesium Total Bilirubin 1.0 AST 24 ALT 23 Alkaline Phosphatase 92 Total Protein 6.0 L Albumin 3.1 L Triglycerides 65 Cholesterol 66.99 LDL Cholesterol Direct 38 VLDL Cholesterol 13.0 HDL Cholesterol 26 L TSH Free T4 12/20/18 12/20/18 12/20/18 10:07 16:00 16:00 Creatine Kinase 55 CK-MB (CK-2) 0.84 Troponin I 0.030 NT-Pro-B Natriuret Pep 9510 H 12/20/18 12/20/18 12/21/18 22:05 22:05 03:40 Creatine Kinase 68 45 L CK-MB (CK-2) 0.89 Troponin I 0.031 NT-Pro-B Natriuret Pep 12/21/18 03:40 Creatine Kinase CK-MB (CK-2) 0.62 Troponin I 0.035 NT-Pro-B Natriuret Pep Impressions: Chest X-Ray 12/20/18 00:00 IMPRESSION: 1. Stable cardiomegaly. 2. Persistent blunting of both costophrenic angles most likely representing pleural thickening. Small pleural effusions cannot be excluded but again are unchanged from prior study. Assessment & Plan - Diagnosis (1) Acute systolic heart failure Is this a current diagnosis for this admission?: Yes Plan: continue treatment (2) Severe pulmonary arterial systolic hypertension Is this a current diagnosis for this admission?: Yes (3) Anasarca Is this a current diagnosis for this admission?: Yes (4) CKD stage 3 due to type 2 diabetes mellitus Is this a current diagnosis for this admission?: Yes (5) BPH (benign prostatic hyperplasia) Qualifiers: Lower urinary tract symptom presence: symptoms present Lower urinary tract symptom detail: unspecified Qualified Code(s): N40.1 - Benign prostatic hyperplasia with lower urinary tract symptoms Is this a current diagnosis for this admission?: Yes (6) UTI (urinary tract infection) Qualifiers: Urinary tract infection type: acute cystitis Hematuria presence: without hematuria Qualified Code(s): N30.00 - Acute cystitis without hematuria Is this a current diagnosis for this admission?: Yes Plan: Start Rocrachelhin
[2018-12-21] MEDS: CEFTRIAXONE SODIUM 1,000 MG in DEXTROSE 5%-WATER 50 ML IV SCH (17:52)
[2018-12-21] MEDS: FUROSEMIDE IV PRN ×2 (17:53)
[2018-12-21] MEDS: NORMAL SALINE IV PRN ×2 (17:53)
[2018-12-21] MEDS: PHARMACY COMMUNICATION ORDER MC SCH (17:54)
[2018-12-21] MEDS: ATORVASTATIN CALCIUM 80 MG TABLET PO SCH (22:29)
[2018-12-22 05:58] LABS: ABSOLUTE LYMPHOCYTES (AUTO) 0.7 10^3/uL (0.5-4.7); ABSOLUTE MONOCYTES (AUTO) 0.4 10^3/uL (0.1-1.4); ABSOLUTE NEUT (AUTO) 2.2 10^3/uL (1.7-8.2); BASOPHILS % (AUTO) 0.5 % (0-2); HEMATOCRIT 30.4 % (37.9-51.0); HEMOGLOBIN 9.4 g/dL (13.5-17.0); LYMPHOCYTES % (AUTO) 20.1 % (13-45); MEAN CORPUSCULAR HEMOGLOBIN 24.9 pg (27.0-33.4); MEAN CORPUSCULAR HGB CONC 30.9 g/dL (32.0-36.0); MEAN CORPUSCULAR VOLUME 81 fl (80-97); MONOCYTES % (AUTO) 13.1 % (3-13); PLATELET COUNT 128 10^3/uL (150-450); RED BLOOD COUNT 3.77 10^6/uL (4.35-5.55); SEGMENTED NEUTROPHILS % (AUTO) 65.3 % (42-78); TOTAL CELLS COUNTED % (AUTO) 100 %; WHITE BLOOD COUNT 3.4 10^3/uL (4.0-10.5)
[2018-12-22] MEDS: HEPARIN SOD (PORCINE) 5,000 UNIT/ML 1 ML SYRINGE SUBCUT SCH ×3 (06:16→22:12)
[2018-12-22] MEDS: HYDRALAZINE HCL 50 MG TABLET PO SCH ×3 (06:17→22:12)
[2018-12-22] MEDS: PANTOPRAZOLE SODIUM 20 MG TABLET.DR PO SCH (06:17)
[2018-12-22 06:26] LABS: ANION GAP 9 (5-19); BLOOD UREA NITROGEN 23 mg/dL (7-20); CALCIUM 8.9 mg/dL (8.4-10.2); CARBON DIOXIDE 32 mmol/L (22-30); CHLORIDE 98 mmol/L (98-107); GLUCOSE 118 mg/dL (75-110); POTASSIUM 3.4 mmol/L (3.6-5.0); SODIUM 138.7 mmol/L (137-145)
[2018-12-22] MEDS: NATEGLINIDE 60 MG TABLET PO SCH ×3 (08:03→17:42)
[2018-12-22] MEDS: INSULIN LISPRO 100 UNIT/ML 3 ML VIAL SUBCUT SCH ×4 (08:04→22:12)
[2018-12-22] MEDS: FERROUS SULFATE 325 MG TABLET PO SCH (10:11)
[2018-12-22] MEDS: FLUTICASONE/UMECLIDIN/VILANTER 100-62.5-25 MCG/DOSE IH SCH (10:11)
[2018-12-22] MEDS: RANOLAZINE 500 MG TAB.SR.12H PO SCH ×2 (10:11→17:42)
[2018-12-22] MEDS: FINASTERIDE 5 MG TABLET PO SCH (10:11)
[2018-12-22] MEDS: ASCORBIC ACID 500 MG TABLET PO SCH (10:11)
[2018-12-22] MEDS: CARVEDILOL 12.5 MG TABLET PO SCH ×2 (10:11→22:12)
[2018-12-22] MEDS: SACUBITRIL/VALSARTAN 97 MG/103 MG TABLET PO SCH ×2 (10:11→22:14)
[2018-12-22] MEDS: POTASSIUM CHLORIDE 20 MEQ PACKET PO SCH ×2 (10:12→13:00)
[2018-12-22] MEDS: NORMAL SALINE IV PRN ×2 (17:42)
[2018-12-22] MEDS: FUROSEMIDE IV PRN ×2 (17:42)
[2018-12-22] MEDS: PHARMACY COMMUNICATION ORDER MC SCH (17:42)
[2018-12-22] MEDS: CEFTRIAXONE SODIUM 1,000 MG in DEXTROSE 5%-WATER 50 ML IV SCH (17:42)
[2018-12-22] MEDS: TAMSULOSIN HCL 0.4 MG CAP.SR.24H PO SCH (17:42)
--- NOTE | 2018-12-22 19:20 | PDOC PROGRESS REPORT ---
Subjective Progress Note for:: 12/22/18 Subjective:: No chest pain. Breathing improving. Lost about 22 lbs since admission on IV Lasix therapy. No recurrent nausea or vomiting since admission. Tolerating oral feeding. No abdominal pain. Reason For Visit: HEART FAILURE Physical Exam Vital Signs: Temp Pulse Resp BP Pulse Ox 97.8 F 70 19 140/56 H 100 12/22/18 04:41 12/22/18 04:41 12/22/18 04:41 12/22/18 06:00 12/22/18 04:41 Intake & Output 12/21/18 12/22/18 12/23/18 06:59 06:59 06:59 Intake Total 491 1491 Output Total 4600 7325 Balance -4109 -6342 Weight 116.8 kg 108.5 kg General appearance: PRESENT: no acute distress, well-developed, well-nourished Head exam: PRESENT: atraumatic, normocephalic Eye exam: PRESENT: conjunctiva pink. ABSENT: scleral icterus Ear exam: PRESENT: normal external ear exam Mouth exam: PRESENT: moist Respiratory exam: PRESENT: clear to auscultation philip, decreased breath sounds - at lung bases Cardiovascular exam: PRESENT: RRR. ABSENT: diastolic murmur, rubs, systolic murmur Vascular exam: ABSENT: pallor GI/Abdominal exam: PRESENT: normal bowel sounds, soft. ABSENT: distended, guarding, mass, organolmegaly, rebound, tenderness Gentrourinary exam: PRESENT: indwelling catheter Extremities exam: PRESENT: pedal edema - improving chronic blilateral pitting edema Neurological exam: PRESENT: alert, awake, oriented to person, oriented to place, oriented to time, oriented to situation, CN II-XII grossly intact. ABSENT: motor sensory deficit Psychiatric exam: PRESENT: appropriate affect, normal mood. ABSENT: homicidal ideation, suicidal ideation Skin exam: PRESENT: dry, warm Results Laboratory Results: 12/22/18 05:30 12/22/18 05:30 12/21/18 12/22/18 12/22/18 03:40 05:30 05:30 WBC 3.4 L RBC 3.77 L Hgb 9.4 L Hct 30.4 L MCV 81 MCH 24.9 L MCHC 30.9 L RDW 22.0 H Plt Count 128 L Seg Neutrophils % 65.3 Lymphocytes % 20.1 Monocytes % 13.1 H Eosinophils % 1.0 Basophils % 0.5 Absolute Neutrophils 2.2 Absolute Lymphocytes 0.7 Absolute Monocytes 0.4 Absolute Eosinophils 0.0 Absolute Basophils 0.0 Sodium 139.7 138.7 Potassium 3.8 3.4 L Chloride 101 98 Carbon Dioxide 31 H 32 H Anion Gap 8 9 BUN 25 H 23 H Creatinine 1.54 H 1.48 H Est GFR ( Amer) 54 L 56 L Est GFR (Non-Af Amer) 45 L 47 L Glucose 108 118 H Calcium 9.0 8.9 12/20/18 12/20/18 12/20/18 10:07 16:00 16:00 Creatine Kinase 55 CK-MB (CK-2) 0.84 Troponin I 0.030 NT-Pro-B Natriuret Pep 9510 H 12/20/18 12/20/18 12/21/18 22:05 22:05 03:40 Creatine Kinase 68 45 L CK-MB (CK-2) 0.89 Troponin I 0.031 NT-Pro-B Natriuret Pep 12/21/18 03:40 Creatine Kinase CK-MB (CK-2) 0.62 Troponin I 0.035 NT-Pro-B Natriuret Pep Impressions: Chest X-Ray 12/20/18 00:00 IMPRESSION: 1. Stable cardiomegaly. 2. Persistent blunting of both costophrenic angles most likely representing pleural thickening. Small pleural effusions cannot be excluded but again are unchanged from prior study. Assessment & Plan - Diagnosis (1) Acute on chronic combined systolic (congestive) and diastolic (congestive) heart failure Is this a current diagnosis for this admission?: Yes Plan: Continue current CHF medication management. I will follow up on echocardiogram findings and request cardiology consultation with Dr. Watson. (2) Anasarca Is this a current diagnosis for this admission?: Yes Plan: Transition to oral Lasix administration tomorrow. Encouraged fluid restriction. (3) BPH loc w urin obs/LUTS Is this a current diagnosis for this admission?: Yes Plan: Increase Flomax to 0.8mg p.o daily pc dinner. Consider urolift procedure upon discharge. Continue Finasteride (4) Urinary tract infection due to Proteus Is this a current diagnosis for this admission?: Yes Plan: Maintain on IV Ceftriaxone coverage based of culture findings and sensitivity report. (5) Diabetes mellitus type 2 in nonobese Is this a current diagnosis for this admission?: Yes Plan: Maintain on current medication management. (6) HTN (hypertension) Qualifiers: Hypertension type: essential hypertension Qualified Code(s): I10 - Essential (primary) hypertension Is this a current diagnosis for this admission?: Yes Plan: Maintain on current medication management. (7) CAD (coronary artery disease) Qualifiers: Coronary Disease-Associated Artery/Lesion type: unspecified vessel or lesion type Associated angina: angina presence unspecified Is this a current diagnosis for this admission?: Yes Plan: Maintain on current medication management. (8) HLD (hyperlipidemia) Qualifiers: Hyperlipidemia type: unspecified Qualified Code(s): E78.5 - Hyperlipidemia, unspecified Is this a current diagnosis for this admission?: Yes Plan: Maintain on current medication management. (9) Old [place] (myocardial infarction) Is this a current diagnosis for this admission?: Yes Plan: Maintain on current medication management. (10) CKD stage 3 due to type 2 diabetes mellitus Is this a current diagnosis for this admission?: Yes Plan: Maintain on current medication management. (11) Severe pulmonary arterial systolic hypertension Is this a current diagnosis for this admission?: Yes Plan: Maintain on current medication management. - Time Time Spent with patient: 25-34 minutes Medications reviewed and adjusted accordingly: Yes Anticipated discharge: Home with Homehealth Within: Other - Inpatient Certification Based on my medical assessment, after consideration of the patient's comorbidities, presenting symptoms, or acuity I expect that the services needed warrant INPATIENT care.: Yes I certify that my determination is in accordance with my understanding of Medicare's requirements for reasonable and necessary INPATIENT services [42 CFR 412.3e].: Yes Medical Necessity: Significant Comorbidiites Make Outpatient Treatment Too Risky, Need Close Monitoring Due to Risk of Patient Decompensation, Need For Continuous Telemetry Monitoring, Need for IV Antibiotics, Risk of Complication i f Not Cared For in Hospital, Risk of Diagnosis Which Will Require Inpatient Eval/Care/Monitoring 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 I had extensive discussion about his care plan with daughter and patient during my bedside today.
[2018-12-22] MEDS: ATORVASTATIN CALCIUM 80 MG TABLET PO SCH (22:12)
[2018-12-23] MEDS: HYDRALAZINE HCL 50 MG TABLET PO SCH ×2 (05:32→13:33)
[2018-12-23] MEDS: HEPARIN SOD (PORCINE) 5,000 UNIT/ML 1 ML SYRINGE SUBCUT SCH ×3 (05:32→22:54)
[2018-12-23] MEDS: PANTOPRAZOLE SODIUM 20 MG TABLET.DR PO SCH (05:32)
[2018-12-23] MEDS: INSULIN LISPRO 100 UNIT/ML 3 ML VIAL SUBCUT SCH ×4 (07:47→22:53)
[2018-12-23] MEDS: NATEGLINIDE 60 MG TABLET PO SCH ×3 (07:49→16:49)
[2018-12-23] MEDS: FLUTICASONE/UMECLIDIN/VILANTER 100-62.5-25 MCG/DOSE IH SCH (09:27)
[2018-12-23] MEDS: RANOLAZINE 500 MG TAB.SR.12H PO SCH ×2 (09:27→17:21)
[2018-12-23] MEDS: ASCORBIC ACID 500 MG TABLET PO SCH (09:28)
[2018-12-23] MEDS: CARVEDILOL 12.5 MG TABLET PO SCH ×2 (09:28→22:52)
[2018-12-23] MEDS: FERROUS SULFATE 325 MG TABLET PO SCH (09:28)
[2018-12-23] MEDS: FINASTERIDE 5 MG TABLET PO SCH (09:28)
[2018-12-23] MEDS: SACUBITRIL/VALSARTAN 97 MG/103 MG TABLET PO SCH ×2 (09:28→22:52)
[2018-12-23] MEDS ORDERED: NORMAL SALINE 250 ML with FUROSEMIDE 250 MG IV PRN ×2 (13:10)
[2018-12-23] MEDS: ISOSORB DINIT/HYDRALAZINE HCL 20-37.5 MG TABLET PO SCH ×2 (15:26→22:53)
[2018-12-23] MEDS: METOLAZONE 2.5 MG TABLET PO SCH (15:28)
[2018-12-23] MEDS: PHARMACY COMMUNICATION ORDER MC SCH (17:19)
[2018-12-23] MEDS: TAMSULOSIN HCL 0.4 MG CAP.SR.24H PO SCH (17:20)
[2018-12-23] MEDS: CEFTRIAXONE SODIUM 1,000 MG in DEXTROSE 5%-WATER 50 ML IV SCH (17:21)
--- NOTE | 2018-12-23 17:57 | PDOC PROGRESS REPORT ---
Subjective Progress Note for:: 12/23/18 Subjective:: No chest pain and breathing is improving. No fever or chills. Urine output very satisfactory. No nausea, vomiting, or abdominal pain. Reason For Visit: HEART FAILURE Physical Exam Vital Signs: Temp Pulse Resp BP Pulse Ox 98.3 F 71 20 131/57 H 97 12/23/18 11:43 12/23/18 11:43 12/23/18 11:43 12/23/18 11:43 12/23/18 11:43 Intake & Output 12/22/18 12/23/18 12/24/18 06:59 06:59 06:59 Intake Total 1491 1129 240 Output Total 3575 2400 750 Balance -3816 -0739 -929 Weight 108.5 kg 108.3 kg Physical Exam: General appearance: PRESENT: no acute distress, well-developed, well-nourished Head exam: PRESENT: atraumatic, normocephalic Eye exam: PRESENT: conjunctiva pink. ABSENT: pallor, scleral icterus Ear exam: PRESENT: normal external ear exam Mouth exam: PRESENT: moist Respiratory exam: PRESENT: clear to auscultation philip, decreased breath sounds - at lung bases Cardiovascular exam: PRESENT: RRR. ABSENT: diastolic murmur, rubs, systolic murmur Vascular exam: ABSENT:GI/Abdominal exam: PRESENT: normal bowel sounds, soft. ABSENT: distended, guarding, mass, organomegaly, rebound, tenderness Gentrourinary exam: PRESENT: indwelling catheter Extremities exam: PRESENT: pedal edema - improving chronic blilateral pitting edema Neurological exam: PRESENT: alert, awake, oriented to person, oriented to place, oriented to time, oriented to situation, CN II-XII grossly intact. ABSENT: motor sensory deficit Psychiatric exam: PRESENT: appropriate affect, normal mood. ABSENT: homicidal ideation, suicidal ideation Skin exam: PRESENT: dry, warm Results Laboratory Results: 12/22/18 05:30 12/22/18 05:30 12/20/18 12/20/18 12/20/18 10:07 16:00 16:00 Creatine Kinase 55 CK-MB (CK-2) 0.84 Troponin I 0.030 NT-Pro-B Natriuret Pep 9510 H 12/20/18 12/20/18 12/21/18 22:05 22:05 03:40 Creatine Kinase 68 45 L CK-MB (CK-2) 0.89 Troponin I 0.031 NT-Pro-B Natriuret Pep 12/21/18 03:40 Creatine Kinase CK-MB (CK-2) 0.62 Troponin I 0.035 NT-Pro-B Natriuret Pep Impressions: Chest X-Ray 12/20/18 00:00 IMPRESSION: 1. Stable cardiomegaly. 2. Persistent blunting of both costophrenic angles most likely representing pleural thickening. Small pleural effusions cannot be excluded but again are unchanged from prior study. Assessment & Plan - Diagnosis (1) Acute on chronic combined systolic (congestive) and diastolic (congestive) heart failure Is this a current diagnosis for this admission?: Yes (2) Anasarca Is this a current diagnosis for this admission?: Yes (3) BPH loc w urin obs/LUTS Is this a current diagnosis for this admission?: Yes (4) Urinary tract infection due to Proteus Is this a current diagnosis for this admission?: Yes (5) Diabetes mellitus type 2 in nonobese Is this a current diagnosis for this admission?: Yes (6) HTN (hypertension) Qualifiers: Hypertension type: essential hypertension Qualified Code(s): I10 - Essential (primary) hypertension Is this a current diagnosis for this admission?: Yes (7) CAD (coronary artery disease) Qualifiers: Coronary Disease-Associated Artery/Lesion type: unspecified vessel or lesion type Associated angina: angina presence unspecified Is this a current diagnosis for this admission?: Yes (8) HLD (hyperlipidemia) Qualifiers: Hyperlipidemia type: unspecified Qualified Code(s): E78.5 - Hyperlipidemia, unspecified Is this a current diagnosis for this admission?: Yes (9) Old [place] (myocardial infarction) Is this a current diagnosis for this admission?: Yes (10) CKD stage 3 due to type 2 diabetes mellitus Is this a current diagnosis for this admission?: Yes (11) Severe pulmonary arterial systolic hypertension Is this a current diagnosis for this admission?: Yes - Time Time Spent with patient: 25-34 minutes Medications reviewed and adjusted accordingly: Yes Anticipated discharge: Home with Homehealth Within: Other - Inpatient Certification Based on my medical assessment, after consideration of the patient's comorbidities, presenting symptoms, or acuity I expect that the services needed warrant INPATIENT care.: Yes I certify that my determination is in accordance with my understanding of Medicare's requirements for reasonable and necessary INPATIENT services [42 CFR 412.3e].: Yes Medical Necessity: Significant Comorbidiites Make Outpatient Treatment Too Risky, Need Close Monitoring Due to Risk of Patient Decompensation, Need For Continuous Telemetry Monitoring, Need for IV Antibiotics, Risk of Complication if Not Cared For in Hospital, Risk of Diagnosis Which Will Require Inpatient Eval/Care/Monitoring 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 Start on Lasix 60 mg po daily and Metolazone 2.5 mg p.o daily. Continue all other current medication management.
[2018-12-23] MEDS: ATORVASTATIN CALCIUM 80 MG TABLET PO SCH (22:53)
[2018-12-24] MEDS: PANTOPRAZOLE SODIUM 20 MG TABLET.DR PO SCH (05:55)
[2018-12-24] MEDS: HEPARIN SOD (PORCINE) 5,000 UNIT/ML 1 ML SYRINGE SUBCUT SCH ×3 (05:55→22:53)
[2018-12-24] MEDS: ISOSORB DINIT/HYDRALAZINE HCL 20-37.5 MG TABLET PO SCH ×3 (05:55→22:53)
[2018-12-24] MEDS: INSULIN LISPRO 100 UNIT/ML 3 ML VIAL SUBCUT SCH ×4 (08:24→22:39)
[2018-12-24] MEDS: NATEGLINIDE 60 MG TABLET PO SCH ×3 (08:25→16:42)
[2018-12-24] MEDS: FLUTICASONE/UMECLIDIN/VILANTER 100-62.5-25 MCG/DOSE IH SCH (09:06)
[2018-12-24] MEDS: FERROUS SULFATE 325 MG TABLET PO SCH (09:07)
[2018-12-24] MEDS: FUROSEMIDE 40 MG TABLET PO SCH (09:07)
[2018-12-24] MEDS: ASCORBIC ACID 500 MG TABLET PO SCH (09:08)
[2018-12-24] MEDS: SACUBITRIL/VALSARTAN 97 MG/103 MG TABLET PO SCH ×2 (09:08→22:53)
[2018-12-24] MEDS: METOLAZONE 2.5 MG TABLET PO SCH (09:08)
[2018-12-24] MEDS: FINASTERIDE 5 MG TABLET PO SCH (09:08)
[2018-12-24] MEDS: RANOLAZINE 500 MG TAB.SR.12H PO SCH ×2 (09:08→17:34)
[2018-12-24] MEDS: CARVEDILOL 12.5 MG TABLET PO SCH ×2 (09:08→22:53)
--- NOTE | 2018-12-24 14:59 | XCELERA REPORT ---
[address] [address] Transthoracic Echocardiogram Report Name: HARPREET CRUZ JR, JR Age: 73 yrs Gender: Male : 1945 Patient Status: Inpatient Patient Location: [address] [place], [place] [id number] Study Date: 12/21/2018 01:48 PM Height: 75 in Weight: 259 lb BSA: 2.4 m2 Procedure: A two-dimensional transthoracic echocardiogram with color flow and Doppler was performed. Study Quality: Poor. Images were not obtained from all of the standard acoustic windows due to the limited scope of the study. Reason For Study: chf History: CHF. Ordering Physician: KENNEDY KNIGHT Performed By: Jd De La Rosa Interpretation Summary A two-dimensional transthoracic echocardiogram with color flow and Doppler was performed. The left ventricle is moderately dilated. No True apical 2 chamber views obtained.Hence cannot comment on the apical anterior , the basal anterior, the basal inferior and apical inferior tracey.The mid anterior , the mid inferior and the rest of the LV tracey are moderately hypokinetic with LVEF moderately reduced at 40%.Note poor endocardial visualisation. Not a good study to assess for Thrombus,ASD, VSD , or PFO. Mildly dilated LA probably. There is no evidence of mitral valve prolapse. There is no vegetation seen on the mitral valve. There is no aortic valve stenosis There is a mild amount of aortic regurgitation There is no tricuspid stenosis. No tricuspid regurgitation. Unable to clculate RVSP due to lack of TR jet. MMode/2D Measurements & Calculations RVDd: 2.0 cm LVIDd: 6.2 cm FS: 21.9 % Ao root diam: 3.1 cm IVSd: 0.97 cm LVIDs: 4.8 cm EDV(Teich): 191.5 ml Ao root area: 7.6 cm2 LVPWd: 1.2 cm ESV(Teich): 108.4 ml LA dimension: 3.3 cm EF(Teich): 43.4 % Doppler Measurements & Calculations MV E max arden: MV P1/2t max arden: Ao V2 max: AI max arden: 86.9 cm/sec 112.9 cm/sec 259.9 cm/sec 252.1 cm/sec MV A max arden: MV P1/2t: 89.1 msec Ao max PG: AI max P.2 cm/sec MVA(P1/2t): 2.5 cm2 27.0 mmHg 25.4 mmHg MV E/A: 1.4 MV dec slope: AI dec slope: 102.2 cm/sec2 371.2 cm/sec2 AI P1/2t: MV dec time: 0.17 sec 722.5 msec LV V1 max PG: PA V2 max: AV P1/2t-pr_phl: MV P1/2t-pr_phl: 3.9 mmHg 70.0 cm/sec 724.6 msec 89.1 msec LV V1 max: PA max P.0 mmHg 99.2 cm/sec Left Ventricle The left ventricle is moderately dilated. There is normal left ventricular wall thickness. No True apical 2 chamber views obtained.Hence cannot comment on the apical anterior , the basal anterior, the basal inferior and apical inferior tracey.The mid anterior , the mid inferior and the rest of the LV tracey are moderately hypokinetic with LVEF moderately reduced at 40%.Note poor endocardial visualisation. LV diastolic function not assessed. Not a good study to assess for Thrombus,ASD, VSD , or PFO. Right Ventricle The right ventricle is not well visualized secondary to technical limitations. Atria Right atrium not well visualized secondary to technical limitations. Mildly dilated LA probably. Mitral Valve The mitral valve is not well visualized. There is no evidence of mitral valve prolapse. There is no vegetation seen on the mitral valve. There is no mitral valve stenosis. There is no mitral regurgitation noted. Aortic Valve There is no aortic valve stenosis. There is a mild amount of aortic regurgitation. Tricuspid Valve There is no tricuspid stenosis. No tricuspid regurgitation. Unable to clculate RVSP due to lack of TR jet. Pulmonic Valve The pulmonic valve is not well visualized. Great Vessels The aortic root is not well visualized. Effusions There is no pericardial effusion. : KENNEDY KNIGHT > Leslie Recinos
[2018-12-24] MEDS: TAMSULOSIN HCL 0.4 MG CAP.SR.24H PO SCH (17:33)
[2018-12-24] MEDS: PHARMACY COMMUNICATION ORDER MC SCH (17:34)
[2018-12-24] MEDS: CEFTRIAXONE SODIUM 1,000 MG in DEXTROSE 5%-WATER 50 ML IV SCH (17:34)
--- NOTE | 2018-12-24 18:40 | PDOC PROGRESS REPORT ---
Subjective Progress Note for:: 12/24/18 Subjective:: No chest pain or difficulty with breathing. No fever or chills. Urine output very satisfactory. No nausea, vomiting, or abdominal pain. Follow up on echo findings. Reason For Visit: HEART FAILURE Physical Exam Vital Signs: Temp Pulse Resp BP Pulse Ox 98.6 F 72 20 110/57 L 100 12/23/18 23:44 12/24/18 02:00 12/23/18 23:44 12/23/18 23:44 12/23/18 23:44 Intake & Output 12/23/18 12/24/18 12/25/18 06:59 06:59 06:59 Intake Total 1129 1036 Output Total 2400 2200 Balance -1271 -1164 Weight 108.3 kg 104.8 kg Physical Exam: General appearance: PRESENT: no acute distress, well-developed, well-nourished Head exam: PRESENT: atraumatic, normocephalic Eye exam: PRESENT: conjunctiva pink. ABSENT: pallor, scleral icterus Ear exam: PRESENT: normal external ear exam Mouth exam: PRESENT: moist Respiratory exam: PRESENT: clear to auscultation philip, decreased breath sounds - at lung bases Cardiovascular exam: PRESENT: RRR. ABSENT: diastolic murmur, rubs, systolic murmur GI/Abdominal exam: PRESENT: normal bowel sounds, soft. ABSENT: distended, guarding, mass, organomegaly, rebound, tenderness Gentrourinary exam: PRESENT: indwelling catheter Extremities exam: PRESENT: pedal edema - improving chronic bilateral pitting edema Neurological exam: PRESENT: alert, awake, oriented to person, oriented to place, oriented to time, oriented to situation, CN II-XII grossly intact. ABSENT: motor sensory deficit Psychiatric exam: PRESENT: appropriate affect, normal mood. ABSENT: homicidal ideation, suicidal ideation Skin exam: PRESENT: dry, warm Results Laboratory Results: 12/22/18 05:30 12/22/18 05:30 12/20/18 12/20/18 12/20/18 10:07 16:00 16:00 Creatine Kinase 55 CK-MB (CK-2) 0.84 Troponin I 0.030 NT-Pro-B Natriuret Pep 9510 H 12/20/18 12/20/18 12/21/18 22:05 22:05 03:40 Creatine Kinase 68 45 L CK-MB (CK-2) 0.89 Troponin I 0.031 NT-Pro-B Natriuret Pep 12/21/18 03:40 Creatine Kinase CK-MB (CK-2) 0.62 Troponin I 0.035 NT-Pro-B Natriuret Pep Impressions: Chest X-Ray 12/20/18 00:00 IMPRESSION: 1. Stable cardiomegaly. 2. Persistent blunting of both costophrenic angles most likely representing pleural thickening. Small pleural effusions cannot be excluded but again are unchanged from prior study. Assessment & Plan - Diagnosis (1) Acute on chronic combined systolic (congestive) and diastolic (congestive) heart failure Is this a current diagnosis for this admission?: Yes (2) Anasarca Is this a current diagnosis for this admission?: Yes (3) BPH loc w urin obs/LUTS Is this a current diagnosis for this admission?: Yes (4) Urinary tract infection due to Proteus Is this a current diagnosis for this admission?: Yes (5) Diabetes mellitus type 2 in nonobese Is this a current diagnosis for this admission?: Yes (6) HTN (hypertension) Qualifiers: Hypertension type: essential hypertension Qualified Code(s): I10 - Essential (primary) hypertension Is this a current diagnosis for this admission?: Yes (7) CAD (coronary artery disease) Qualifiers: Coronary Disease-Associated Artery/Lesion type: unspecified vessel or lesion type Associated angina: angina presence unspecified Is this a current diagnosis for this admission?: Yes (8) HLD (hyperlipidemia) Qualifiers: Hyperlipidemia type: unspecified Qualified Code(s): E78.5 - Hyperlipidemia, unspecified Is this a current diagnosis for this admission?: Yes (9) Old GA (myocardial infarction) Is this a current diagnosis for this admission?: Yes (10) CKD stage 3 due to type 2 diabetes mellitus Is this a current diagnosis for this admission?: Yes (11) Severe pulmonary arterial systolic hypertension Is this a current diagnosis for this admission?: Yes - Time Time Spent with patient: 25-34 minutes Medications reviewed and adjusted accordingly: Yes Anticipated discharge: Home with Homehealth Within: Other - Inpatient Certification Based on my medical assessment, after consideration of the patient's comorbidities, presenting symptoms, or acuity I expect that the services needed warrant INPATIENT care.: Yes I certify that my determination is in accordance with my understanding of Medicare's requirements for reasonable and necessary INPATIENT services [42 CFR 412.3e].: Yes Medical Necessity: Significant Comorbidiites Make Outpatient Treatment Too Risky, Need Close Monitoring Due to Risk of Patient Decompensation, Need For Continuous Telemetry Monitoring, Risk of Complication if Not Cared For in Hospital, Risk of Diagnosis Which Will Require Inpatient Eval/Care/Monitoring Post Hospital Care: D/C Firefighting Equipment Specialist Documentation - Plan Summary Plan Summary: Continue current medication management. Request PT evaluation. Follow up on echocardiogram official findings.
--- NOTE | 2018-12-24 20:18 | Progress Note ---
Provider Note Provider Note: CARDIOLOGY PROGRESS NOTE by Dr. Leslie Hammer on 12/24/2018. SUBJECTIVE: Patient states he feels better. He still has some orthopnea but no PND. His leg edema is only trace. He has no chest pain or discomfort. There is no arrhythmia seen on the monitor. There is no TIA CVA symptoms. PHYSICAL EXAMINATION: The patient is well-built and well-nourished. In no acute distress. Selected Entries 12/24/18 10:58 Temperature 97.5 F Temperature Oral Source Pulse Rate 70 Respiratory 17 Rate Blood Pressure 125/60 Blood Pressure 81 Mean BP Location Left Arm BP Position Supine O2 Sat by Pulse 95 Oximetry Oxygen Flow 4.00 Rate Oxygen Delivery Nasal Cannula Method HEAD: Is atraumatic. Normocephalic. ENT is negative. NECK: Supple. There is no JVD. Carotids are equal there is no bruit. There is no lymphadenopathy there is no goiter. There is no accessory muscle respiration use. Trachea central. LUNGS: This shows diminished air entry prolonged expiration without any rhonchi rales or wheezing. On percussion there is hyperresonance. There is no rhonchi rales wheezing. HEART: S1-S2 is heard. There is no S3 gallop there is no S4 gallop. There is systolic murmur left sternal border and the apex. There is no rub. EXTREMITIES: Femorals are diminished. There is no femoral bruits. Leg pulses are diminished. There is trace pedal edema with chronic venous stasis dermatitis. THERE is no calf tenderness. VAMP LINER: The patient is conscious awake alert oriented x3 with no focal deficits. Labs- All tests 24 hr 12/23/18 12/24/18 12/24/18 21:06 10:56 16:56 POC Glucose 175 H 189 H 193 H Chest X-Ray 12/20/18 00:00 IMPRESSION: 1. Stable cardiomegaly. 2. Persistent blunting of both costophrenic angles most likely representing pleural thickening. Small pleural effusions cannot be excluded but again are unchanged from prior study. IMPRESSION RECOMMENDATION: 1. Acute on chronic systolic heart failure. Continue current medication including diuretics and hydralazine, and beta-kelsie. 2. Cardiomyopathy mixed ischemic and dilated with LV ejection fraction of 40%. This is moderately reduced systolic function liver function. Continue current treatment as being done. 3. Coronary artery disease. History of prior non-ST elevation [place], and history of coronary artery bypass graft surgery in the past. Patient with no anginal symptoms. No evidence of [place] this admission. 4. Hypertension: Blood pressure well controlled. 5. Diabetes mellitus insulin-dependent. Continue current antidiabetic treatment and Accu-Cheks. 6. Chronic kidney disease stage III. Avoid nephrotoxic drugs. 7. CHRONIC obstructive lung disease: At present no acute exacerbation. . Tobacco abuse disorder: Tobacco cessation counseling given. Medications reviewed. Management plan discussed with the attending physician on the case. 40 minutes spent on this patient more than 50% of time spent in direct patient care. Patient is a full code. His daughter is a surrogate healthcare decision maker.
[2018-12-24] MEDS: ATORVASTATIN CALCIUM 80 MG TABLET PO SCH (22:53)
[2018-12-25] MEDS: PANTOPRAZOLE SODIUM 20 MG TABLET.DR PO SCH (06:06)
[2018-12-25] MEDS: HEPARIN SOD (PORCINE) 5,000 UNIT/ML 1 ML SYRINGE SUBCUT SCH ×3 (06:06→21:58)
[2018-12-25] MEDS: ISOSORB DINIT/HYDRALAZINE HCL 20-37.5 MG TABLET PO SCH ×3 (06:06→21:54)
[2018-12-25] MEDS: INSULIN LISPRO 100 UNIT/ML 3 ML VIAL SUBCUT SCH ×4 (07:39→21:54)
[2018-12-25] MEDS: NATEGLINIDE 60 MG TABLET PO SCH ×3 (07:40→16:34)
[2018-12-25] MEDS: FERROUS SULFATE 325 MG TABLET PO SCH (09:18)
[2018-12-25] MEDS: ASCORBIC ACID 500 MG TABLET PO SCH (09:19)
[2018-12-25] MEDS: METOLAZONE 2.5 MG TABLET PO SCH (09:19)
[2018-12-25] MEDS: RANOLAZINE 500 MG TAB.SR.12H PO SCH ×2 (09:19→17:10)
[2018-12-25] MEDS: FINASTERIDE 5 MG TABLET PO SCH (09:20)
[2018-12-25] MEDS: CARVEDILOL 12.5 MG TABLET PO SCH ×2 (09:20→21:58)
[2018-12-25] MEDS: FUROSEMIDE 40 MG TABLET PO SCH (09:20)
[2018-12-25] MEDS: SACUBITRIL/VALSARTAN 97 MG/103 MG TABLET PO SCH ×2 (09:21→21:58)
[2018-12-25] MEDS: FLUTICASONE/UMECLIDIN/VILANTER 100-62.5-25 MCG/DOSE IH SCH (09:21)
[2018-12-25] MEDS: CEFTRIAXONE SODIUM 1,000 MG in DEXTROSE 5%-WATER 50 ML IV SCH (17:09)
[2018-12-25] MEDS: TAMSULOSIN HCL 0.4 MG CAP.SR.24H PO SCH (17:10)
[2018-12-25] MEDS: PHARMACY COMMUNICATION ORDER MC SCH (17:21)
--- NOTE | 2018-12-25 18:25 | PDOC PROGRESS REPORT ---
Subjective Progress Note for:: 12/25/18 Subjective:: No chest pain or difficulty with breathing. No fever or chills. No abdominal pain, nausea, or vomiting. Reason For Visit: HEART FAILURE Physical Exam Vital Signs: Temp Pulse Resp BP Pulse Ox 97.5 F 69 17 125/60 95 12/24/18 10:58 12/25/18 02:00 12/24/18 10:58 12/24/18 10:58 12/24/18 10:58 Intake & Output 12/24/18 12/25/18 12/26/18 06:59 06:59 06:59 Intake Total 1036 840 Output Total 2200 1200 Balance -1164 -360 Weight 104.8 kg 105.9 kg Physical Exam: General appearance: PRESENT: no acute distress, well-developed, well-nourished Head exam: PRESENT: atraumatic, normocephalic Eye exam: PRESENT: conjunctiva pink. ABSENT: pallor, scleral icterus Ear exam: PRESENT: normal external ear exam Mouth exam: PRESENT: moist Respiratory exam: PRESENT: clear to auscultation philip, decreased breath sounds - at lung bases Cardiovascular exam: PRESENT: RRR. ABSENT: diastolic murmur, rubs, systolic murmur GI/Abdominal exam: PRESENT: normal bowel sounds, soft. ABSENT: distended, guarding, mass, organomegaly, rebound, tenderness Gentrourinary exam: PRESENT: indwelling catheter Extremities exam: PRESENT: pedal edema - improving chronic bilateral pitting edema Neurological exam: PRESENT: alert, awake, oriented to person, oriented to place, oriented to time, oriented to situation, CN II-XII grossly intact. ABSENT: motor sensory deficit Psychiatric exam: PRESENT: appropriate affect, normal mood. ABSENT: homicidal ideation, suicidal ideation Skin exam: PRESENT: dry, warm Results Laboratory Results: 12/22/18 05:30 12/22/18 05:30 12/20/18 12/20/18 12/20/18 10:07 16:00 16:00 Creatine Kinase 55 CK-MB (CK-2) 0.84 Troponin I 0.030 NT-Pro-B Natriuret Pep 9510 H 12/20/18 12/20/18 12/21/18 22:05 22:05 03:40 Creatine Kinase 68 45 L CK-MB (CK-2) 0.89 Troponin I 0.031 NT-Pro-B Natriuret Pep 12/21/18 03:40 Creatine Kinase CK-MB (CK-2) 0.62 Troponin I 0.035 NT-Pro-B Natriuret Pep Impressions: Chest X-Ray 12/20/18 00:00 IMPRESSION: 1. Stable cardiomegaly. 2. Persistent blunting of both costophrenic angles most likely representing pleural thickening. Small pleural effusions cannot be excluded but again are unchanged from prior study. Assessment & Plan - Diagnosis (1) Acute on chronic combined systolic (congestive) and diastolic (congestive) heart failure Is this a current diagnosis for this admission?: Yes (2) Anasarca Is this a current diagnosis for this admission?: Yes (3) BPH loc w urin obs/LUTS Is this a current diagnosis for this admission?: Yes (4) Urinary tract infection due to Proteus Is this a current diagnosis for this admission?: Yes (5) Diabetes mellitus type 2 in nonobese Is this a current diagnosis for this admission?: Yes (6) HTN (hypertension) Qualifiers: Hypertension type: essential hypertension Qualified Code(s): I10 - Essential (primary) hypertension Is this a current diagnosis for this admission?: Yes (7) CAD (coronary artery disease) Qualifiers: Coronary Disease-Associated Artery/Lesion type: unspecified vessel or lesion type Associated angina: angina presence unspecified Is this a current diagnosis for this admission?: Yes (8) HLD (hyperlipidemia) Qualifiers: Hyperlipidemia type: unspecified Qualified Code(s): E78.5 - Hyperlipidemia, unspecified Is this a current diagnosis for this admission?: Yes (9) Old MA (myocardial infarction) Is this a current diagnosis for this admission?: Yes (10) CKD stage 3 due to type 2 diabetes mellitus Is this a current diagnosis for this admission?: Yes (11) Severe pulmonary arterial systolic hypertension Is this a current diagnosis for this admission?: Yes - Time Time Spent with patient: 25-34 minutes Medications reviewed and adjusted accordingly: Yes Anticipated discharge: Home with Homehealth Within: Other - Inpatient Certification Based on my medical assessment, after consideration of the patient's comorbidities, presenting symptoms, or acuity I expect that the services needed warrant INPATIENT care.: Yes I certify that my determination is in accordance with my understanding of Medicare's requirements for reasonable and necessary INPATIENT services [42 CFR 412.3e].: Yes Medical Necessity: Significant Comorbidiites Make Outpatient Treatment Too Risky, Need Close Monitoring Due to Risk of Patient Decompensation, Need For Continuous Telemetry Monitoring, Need for IV Antibiotics, Risk of Complication if Not Cared For in Hospital, Risk of Diagnosis Which Will Require Inpatient Eval/Care/Monitoring Post Hospital Care: D/C Regulation Supervisor Documentation - Plan Summary Plan Summary: Continue current medication management. Follow up on PT input. Possible discharge home tomorrow.
[2018-12-25 19:21] LABS: ABSOLUTE EOSINOPHILS # (AUTO) 0.1 10^3/uL (0.0-0.6); ABSOLUTE LYMPHOCYTES (AUTO) 0.8 10^3/uL (0.5-4.7); ABSOLUTE MONOCYTES (AUTO) 0.5 10^3/uL (0.1-1.4); ABSOLUTE NEUT (AUTO) 2.7 10^3/uL (1.7-8.2); BASOPHILS % (AUTO) 0.8 % (0-2); EOSINOPHILS % (AUTO) 1.5 % (0-6); HEMATOCRIT 31.7 % (37.9-51.0); HEMOGLOBIN 9.5 g/dL (13.5-17.0); LYMPHOCYTES % (AUTO) 19.6 % (13-45); MEAN CORPUSCULAR HEMOGLOBIN 24.8 pg (27.0-33.4); MEAN CORPUSCULAR HGB CONC 30.1 g/dL (32.0-36.0); MEAN CORPUSCULAR VOLUME 82 fl (80-97); MONOCYTES % (AUTO) 12.1 % (3-13); PLATELET COUNT 166 10^3/uL (150-450); RED BLOOD COUNT 3.85 10^6/uL (4.35-5.55); RED CELL DISTRIBUTION WIDTH 21.6 % (11.5-14.0); TOTAL CELLS COUNTED % (AUTO) 100 %; WHITE BLOOD COUNT 4.2 10^3/uL (4.0-10.5)
[2018-12-25 19:42] LABS: ANION GAP 6 (5-19); BLOOD UREA NITROGEN 25 mg/dL (7-20); CARBON DIOXIDE 35 mmol/L (22-30); CHLORIDE 96 mmol/L (98-107); GLUCOSE 118 mg/dL (75-110); POTASSIUM 4.7 mmol/L (3.6-5.0); SODIUM 136.9 mmol/L (137-145)
[2018-12-25] MEDS: ATORVASTATIN CALCIUM 80 MG TABLET PO SCH (21:58)
[2018-12-26] MEDS: HEPARIN SOD (PORCINE) 5,000 UNIT/ML 1 ML SYRINGE SUBCUT SCH (05:32)
[2018-12-26] MEDS: ISOSORB DINIT/HYDRALAZINE HCL 20-37.5 MG TABLET PO SCH (05:32)
[2018-12-26] MEDS: PANTOPRAZOLE SODIUM 20 MG TABLET.DR PO SCH (05:32)
[2018-12-26] MEDS: INSULIN LISPRO 100 UNIT/ML 3 ML VIAL SUBCUT SCH ×2 (08:45→12:07)
[2018-12-26] MEDS: NATEGLINIDE 60 MG TABLET PO SCH ×2 (08:47→12:08)
[2018-12-26] MEDS: RANOLAZINE 500 MG TAB.SR.12H PO SCH (10:15)
[2018-12-26] MEDS: SACUBITRIL/VALSARTAN 97 MG/103 MG TABLET PO SCH (10:15)
[2018-12-26] MEDS: FUROSEMIDE 40 MG TABLET PO SCH (10:16)
[2018-12-26] MEDS: FINASTERIDE 5 MG TABLET PO SCH (10:16)
[2018-12-26] MEDS: ASCORBIC ACID 500 MG TABLET PO SCH (10:16)
[2018-12-26] MEDS: METOLAZONE 2.5 MG TABLET PO SCH (10:16)
[2018-12-26] MEDS: FERROUS SULFATE 325 MG TABLET PO SCH (10:16)
[2018-12-26] MEDS: CARVEDILOL 12.5 MG TABLET PO SCH (10:16)
[2018-12-26] MEDS: FLUTICASONE/UMECLIDIN/VILANTER 100-62.5-25 MCG/DOSE IH SCH (10:21)
[2018-12-26 11:53] VITALS: BP 116/76
== END 2018-12-26 12:28 | disposition home health service (06) | DRG 291 ==
LOC: ER 09:43 → EH 12:05 → 3S 14:42
PROVIDERS: ADMIT Internal Medicine Geriatric Medicine; ATTEND Internal Medicine Geriatric Medicine
DX: I13.0 Hypertensive heart and chronic kidney disease with heart failure and stage 1 through stage 4 chronic kidney disease, or unspecified chronic kidney disease (principal); I50.43 Acute on chronic combined systolic (congestive) and diastolic (congestive) heart failure; N17.9 Acute kidney failure, unspecified; N39.0 Urinary tract infection, site not specified; N13.8 Other obstructive and reflux uropathy; I25.10 Atherosclerotic heart disease of native coronary artery without angina pectoris; Z95.5 Presence of coronary angioplasty implant and graft; J44.9 Chronic obstructive pulmonary disease, unspecified; I25.2 Old myocardial infarction; E78.5 Hyperlipidemia, unspecified; N40.1 Benign prostatic hyperplasia with lower urinary tract symptoms; I25.5 Ischemic cardiomyopathy; I27.20 Pulmonary hypertension, unspecified; F32.9 Major depressive disorder, single episode, unspecified; E11.22 Type 2 diabetes mellitus with diabetic chronic kidney disease; N18.3 Chronic kidney disease, stage 3 (moderate); B96.4 Proteus (mirabilis) (morganii) as the cause of diseases classified elsewhere; I42.0 Dilated cardiomyopathy
CPT/HCPCS: 36415; 36600; 71045; 80048; 80053; 80061; 80076; 81001; 82550; 82553; 82570; 82803; 82962; 83036; 83735; 83880; 84156; 84439; 84443; 84484; 85025; 85610; 85730; 87086; 87088; 87186; 93005; 93010; 93306; 99285; J0696; J1644; J1815; J1940; J3490; J7050; J7060

== ENCOUNTER 2019-04-16 10:42 | Emergency (ER) | payer MEDICARE ==
--- NOTE | 2019-04-16 12:04 | RADIOLOGY REPORT (SQ) ---
EXAM DESCRIPTION: TIBIA FIBULA RIGHT COMPLETED DATE/TIME: 04/16/2019 11:54 am REASON FOR STUDY: bone tenderness COMPARISON: None. NUMBER OF VIEWS: Two views. TECHNIQUE: Two radiographic images acquired of the right tibia and fibula to include the knee and an kle in at least one projection. LIMITATIONS: None. FINDINGS: MINERALIZATION: Normal. BONES: No acute fracture or dislocation. No worrisome bone lesions. SOFT TISSUES: Vascular calcifications. OTHER: No other significant finding. IMPRESSION: NO RADIOGRAPHIC EVIDENCE OF ACUTE INJURY. TECHNICAL DOCUMENTATION: JOB ID: [id number] [employer]- All Rights Reserved Reading location - IP/workstation name: [email or web address]
[2019-04-16 15:18] VITALS: BP 139/81
--- NOTE | 2019-04-16 18:42 | ER Document Report ---
Entered by JOSELO CHINO SCRIBE 04/16/19 1356 Acting as scribe for:DIONY ROMERO MD ED General - General Chief Complaint: Leg Pain Stated Complaint: RIGHT LEG WEAKNESS Time Seen by Provider: 04/16/19 13:51 Primary Care Provider: LOUIS JEFFERS MD [Primary Care Provider] - 04/20/19 Notes: Patient is a 73 year old male presenting to the emergency department complaining of right leg pain/weakness. Patient states that at around 0900 he felt his right knee "buckle" when he was trying to stand up. Patient states he "did not fall" as his family member at bedside was able to set him gently to the floor. Patient states he now has no pain in his knee. TRAVEL OUTSIDE OF THE [place] IN LAST 30 DAYS: No - Related Data Allergies/Adverse Reactions: No Known Allergies Allergy (Verified 09/29/18 13:32) Past Medical History - General Information source: Patient - Social History Smoking Status: Unknown if Ever Smoked Cigarette use (# per day): No Chew tobacco use (# tins/day): No Frequency of alcohol use: None Drug Abuse: None Family History: Reviewed & Not Pertinent Patient has suicidal ideation: No Patient has homicidal ideation: No - Past Medical History Cardiac Medical History: Reports: Hx Congestive Heart Failure, Hx Coronary Artery Disease, Hx Heart Attack, Hx Hypercholesterolemia, Hx Hypertension Pulmonary Medical History: Reports: Hx COPD Endocrine Medical History: Reports: Hx Diabetes Mellitus Type 2 Renal/ Medical History: Reports: Hx Benign Prostatic Hyperplasia Psychiatric Medical History: Reports: Hx Depression Past Surgical History: Reports: Hx Cardiac Catheterization, Hx Cardiac Surgery - Immunizations Hx Pneumococcal Vaccination: 04/10/18 Review of Systems - Review of Systems Constitutional: No symptoms reported EENT: No symptoms reported Cardiovascular: No symptoms reported Respiratory: No symptoms reported Gastrointestinal: No symptoms reported Genitourinary: No symptoms reported Male Genitourinary: No symptoms reported Musculoskeletal: See HPI, Other - Right knee Skin: No symptoms reported Hematologic/Lymphatic: No symptoms reported Neurological/Psychological: No symptoms reported -: Yes All other systems reviewed and negative Physical Exam - Vital signs Vitals: Temp Pulse Resp BP Pulse Ox 97.7 F 96 22 H 109/64 95 04/16/19 10:48 04/16/19 10:48 04/16/19 10:48 04/16/19 10:48 04/16/19 10:48 - Notes Notes: Physical Exam: General: Alert, appears well. HEENT: Normocephalic. Atraumatic. PERRL. Extraocular movements intact. Oropharynx clear. Neck: Supple. Non-tender. Respiratory: No respiratory distress. Clear and equal breath sounds bilaterally. Cardiovascular: Regular rate and rhythm. Abdominal: Normal Inspection. Non-tender. No distension. Normal Bowel Sounds. Back: No gross abnormalities. Extremities: Moves all four extremities. Upper extremities: Normal inspection. Normal ROM. Lower extremities: Right knee has no effusion, no tenderness with palpation. Negative anterior/posterior drawer test. No ligamentous laxity with valgus stressing of the MCL/LCL, no pain elicited either. No pain present with passive/active extension. Neurological: Normal cognition. AAOx4. Normal speech. Psychological: Normal affect. Normal Mood. Skin: Warm. Dry. Normal color. Course - Re-evaluation Re-evalutation: 04/16/19 15:16 The right knee immobilizer was placed by the nurse. It fits well and provides stability. Patient was able to walk around and stated it felt fine. - Vital Signs Vital signs: Temp Pulse Resp BP Pulse Ox 98.0 F 109 H 22 H 139/81 H 94 04/16/19 14:55 04/16/19 15:17 04/16/19 10:48 04/16/19 15:17 04/16/19 15:17 - Diagnostic Test Radiology reviewed: Reports reviewed - Right lower extremity x-ray is unremarkable Discharge - Discharge Clinical Impression: Right knee buckling Condition: Stable Disposition: HOME, SELF-CARE Additional Instructions: Use the knee immobilizer for the next few days to provide stability to the right knee. Follow-up with your primary care provider Saturday for recheck to see if you need to continue using the immobilizer. RETURN TO THE EMERGENCY ROOM IF ANY NEW OR WORSENING SYMPTOMS. Referrals: LOUIS JEFFERS MD [Primary Care Provider] - 04/20/19 Scribe Attestation: 04/16/19 15:17 I personally performed the services described in the documentation, reviewed and edited the documentation which was dictated to the scribe in my presence, and it accurately records my words and actions. I personally performed the services described in the documentation, reviewed and edited the documentation which was dictated to the scribe in my presence, and it accurately records my words and actions.
== END 2019-04-16 15:32 | disposition home or self-care (01) ==
LOC: ER 10:42
DX: R53.1 Weakness (principal); M79.604 Pain in right leg; I25.10 Atherosclerotic heart disease of native coronary artery without angina pectoris; I10 Essential (primary) hypertension; J44.9 Chronic obstructive pulmonary disease, unspecified; E11.9 Type 2 diabetes mellitus without complications
CPT/HCPCS: 99283; 73590; L1830